=== PATIENT | female | born 1930 | race Caucasian/White ===

== ENCOUNTER 2017-07-13 23:18 | Inpatient (IN) | payer OTHER ==
[~2017-07-13] VITALS: Ht 152.4 cm; Wt 74.0 kg
[~2017-07-13 23:18] MED LIST: CALC200S; CALCIUM PO; CYAN10005 PO; FLV1 PO; GLPSR/5 PO; LIDO5DIS10 TD; LISI-725 PO; LRT5 PO; METO50TA16 PO; NMN10 PO; SERT-234 PO; SIMV20TA2 PO; VITAMIN D PO; [UNRECOGNIZED DRUG - OTHER] PO
--- NOTE | 2017-07-13 23:55 | EMERGENCY ROOM VISIT NOTE ---
History Report prepared by Nica: Topher Kendrick Under the Supervision of: Dr. Kathleen Dickens D.O. First contact with patient: 23:21 Chief Complaint: FALL Stated Complaint: FALL/HIP PAIN History of Present Illness The patient is an 87 year old female who presents to the Emergency Room after a fall that occurred prior to arrival. The nursing staff states the patient came from [facility] and rolled out of bed. They report the patient rolled out of bed onto her right side and complained of head and neck pain. Nursing staff notes the patient has a history of dementia, and it is hard for her to stay in bed. The patient states she is having discomfort in her right hip and denies a headache and neck pain. 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 It also shows the patient has a history of hyperlipidemia, a-fib, aortic stenosis, hypertension, and on PE her left eye looks laterally. HPI limited secondary to the patient's dementia. Source of History: patient Onset: [employer]IDENT[employer] Position: other (right side) Quality: other (fall) Timing: resolved Associated Symptoms: No headache, No neck pain Note: Associated symptoms: hip discomfort Review of Systems ROS is limited secondary to the patient's dementia. Past Medical & Surgical Medical Problems: (1) A-fib (2) Aortic stenosis (3) CVA (cerebral vascular accident) (4) Dementia (5) HLD (hyperlipidemia) Family History Unobtainable secondary to the patient's dementia. Social History Marital Status: Housing Status: other ([facility]) Occupation Status: retired Current/Historical Medications Scheduled Amlodipine (Norvasc), 2.5 MG PO DAILY Aspirin (Aspirin Ec), 81 MG PO QAM Atorvastatin (Lipitor), 80 MG PO DAILY Citalopram Hydrobromide (Citalopram Hydrobromide), 20 MG PO DAILY Clopidogrel (Plavix), 75 MG PO DAILY Enoxaparin (Lovenox), 40 MG SQ DAILY Memantine (Namenda), 10 MG PO Q12 Oxybutynin Chloride (Oxybutynin Chloride ER), 5 MG PO DAILY Potassium Chloride Microencaps (Potassium Chloride Er), 20 MEQ PO QAM Senna/Docusate Sod (Senokot S), 1 TAB PO DAILY AT LUNCH Allergies Coded Allergies: No Known Allergies (Unverified , 07/14/17) Physical Exam Vital Signs Date Time Temp Pulse Resp B/P (MAP) Pulse Ox O2 Delivery O2 Flow Rate FiO2 07/14/17 01:17 84 20 150/96 94 Room Air 07/14/17 00:18 88 18 151/73 97 Room Air 07/13/17 23:41 82 07/13/17 23:21 36.7 91 18 165/106 94 Room Air Physical Exam HEENT: Head - normocephalic and atraumatic Pupils are equal, round, and reactive to light. Extraocular eye muscles are intact, and sclera are anicteric. Nose - moist nasal mucosa without discharge. Mouth - moist buccal mucosa. Oropharynx is nonerythematous and there is no tonsillar exudate or edema noted. Neck: Supple; no JVD, nuchal rigidity, cervical lymphadenopathy. Heart: Irregularly irregular with a 4/6 systolic injection murmur. Lungs: Clear to auscultation bilaterally with no wheezes, rales, or rhonchi. Abdomen: Soft, completely nontender, nondistended, with good bowel sounds. There are no palpable pulsatile masses or hepatosplenomegaly. There is no guarding, rigidity, or rebound noted. Extremities: No evidence of cyanosis, clubbing, or edema. There are easily palpable peripheral pulses. Contusion to right shoulder. Complains of pain in right hip. Right lower extremity is shortened and externally rotated. Skin: warm and dry with good turgor and no rashes. Medical Decision & Procedures ER Provider Diagnostic Interpretation: Radiology results as stated below per my review and the radiologist's interpretation: X-ray of right femur: hardware in place. New hip fracture. CT HEAD: No intracranial hemorrhage, mass effect, or calvarial fracture Right frontotemporal scalp soft tissue swelling Ventricles are within limits and midline Chronic and involutional changes. Visualized paranasal sinuses, mastoid, and orbits are within limits. Radiologist: Joseph Glaser MD Study ready at 0023 and initial results transmitted at 0052. CT C SPINE: No fracture or malalignment. Multilevel spondylosis/discogenic change with bilateral foraminal and central stenosis. Radiologist: Joseph Glaser MD Study ready at 0030 and initial results transmitted at 0057. Laboratory Results 07/14/17 00:00 07/14/17 00:00 Test 07/14/17 00:00 Red Blood Count 4.57 M/uL (4.2-5.4) Mean Corpuscular Volume 92.3 fL (80-100) Mean Corpuscular Hemoglobin 31.3 pg (25-34) Mean Corpuscular Hemoglobin Concent 33.9 g/dl (32-36) RDW Standard Deviation 47.5 fL (36.4-46.3) RDW Coefficient of Variation 14.1 % (11.5-14.5) Mean Platelet Volume 10.4 fL (7.4-10.4) Anion Gap 3.0 mmol/L (3-11) Est Creatinine Clear Calc Drug Dose 63.6 ml/min Estimated GFR () 92.9 Estimated GFR (Non- 80.2 BUN/Creatinine Ratio 20.5 (10-20) Calcium Level 9.8 mg/dl (8.5-10.1) Troponin I 0.017 ng/ml (0-0.045) Laboratory results per my review. Medications Administered Medications (Trade) Dose Ordered Sig/Lucinda Route Start Time Stop Time Status Last Admin Dose Admin Morphine Sulfate (MoRPHine SULFATE INJ) 2 mg NOW STAT IV 07/14/17 01:05 07/14/17 01:06 DC 07/14/17 01:05 2 MG Ondansetron HCl (Zofran Inj) 4 mg NOW STAT IV 07/14/17 01:05 07/14/17 01:06 DC 07/14/17 01:10 4 MG Hydromorphone HCl (Dilaudid Inj) 0.5 mg NOW STAT IV 07/14/17 01:41 07/14/17 01:42 DC 07/14/17 01:46 0.5 MG Procedure 0105: Ordered Ondansetron HCl 4mg IV, Morphine Sulfate 2mg IV 0141: Ordered Hydromorphone HCl 0.5mg IV ECG Indication: weakness Rate (beats per minute): 90 Rhythm: atrial fibrillation Findings: PVC, no acute ischemic change Comparison ECG Date: no prior available ED Course 2323: The patient was evaluated in room B03B. A complete history and physical examination were performed. Nursing notes and previous electronic medical records were reviewed. IV lock was established and labs were drawn as above. 0105: Ordered Ondansetron HCl 4mg IV, Morphine Sulfate 2mg IV 0141: Ordered Hydromorphone HCl 0.5mg IV 0110: I discussed the patient's case with Pablo Sanchez. The patient will be evaluated for further management and need. 0112: Upon reevaluation, I discussed findings and results with the patient's daughter. She verbalized agreement of the treatment plan. Medical Decision The patient is an 87 year old female who presents to the ED after a fall. Differential diagnosis includes hip fracture, head injury, c-spine injury, right shoulder injury. Lab results show: no leukocytosis, stable H&H, normal renal function, glucose of 129, normal troponin. The patient was rehabbing at [facility] from a brain stem stroke. Unfortunately, tonight, she fell from bed landing on her right side. It seems that she has a right hip fracture on x-ray. The patient has hardware within the right femur from an injury from 2 years ago. The patient did not lose consciousness. CT scan of the brain and cervical spine were unremarkable. I discussed the results with the patient's granddaughter who is a nurse. I discussed the case with the Pablo [place] [facility] and they will evaluate for further management. Head Trauma GCS Score: 15 Medication Reconcilliation Current Medication List: was personally reviewed by me Blood Pressure Screening Patient's blood pressure: Elevated blood pressure Monitored by hospitalist. Consults Time Called: 108 Consulting Physician: Pablo Sanchez Returned Call: 109 I discussed the patient's case with Pablo Sanchez. The patient will be evaluated for further management and need. Impression Primary Impression: Hip fracture, right Additional Impression: Fall from bed Scribe Attestation The scribe's documentation has been prepared under my direction and personally reviewed by me in its entirety. I confirm that the note above accurately reflects all work, treatment, procedures, and medical decision making performed by me. Departure Information Dispostion Being Evaluated By Hospitalist Referrals [facility] (PCP) Patient Instructions My [facility] Problem Qualifiers Primary Impression: Hip fracture, right Encounter type: initial encounter Fracture type: closed Qualified Codes: S72.001A - Fracture of unspecified part of neck of right femur, initial encounter for closed fracture Additional Impression: Fall from bed Encounter type: initial encounter Qualified Codes: W06.XXXA - Fall from bed , initial encounter
[2017-07-14 00:11] LABS: HEMATOCRIT 42.2 % (37-47); HEMOGLOBIN 14.3 g/dL (12.0-16.0); MEAN CELL VOLUME 92.3 fL (80-100); MEAN CORPUSCULAR HEMOGLOBIN 31.3 pg (25-34); MEAN CORPUSCULAR HGB CONC 33.9 g/dl (32-36); MEAN PLATELET VOLUME 10.4 fL (7.4-10.4); PLATELET COUNT 138 K/uL (130-400); RED CELL DISTRIBUTION WIDTH CV 14.1 % (11.5-14.5); RED CELL DISTRIBUTION WIDTH SD 47.5 fL (36.4-46.3); WHITE BLOOD COUNT 6.44 K/uL (4.8-10.8)
[2017-07-14] MEDS ORDERED: SENN-65 PO (00:35)
[2017-07-14] MEDS ORDERED: CLOP1TAB15 PO (00:35)
[2017-07-14] MEDS ORDERED: CITA20TA4 PO (00:36)
[2017-07-14] MEDS ORDERED: ASPI81TA28 PO (00:36)
[2017-07-14] MEDS ORDERED: ATOR-26 PO (00:36)
[2017-07-14 00:38] LABS: CALCIUM 9.8 mg/dl (8.5-10.1); CREATININE 0.67 mg/dl (0.60-1.20); POTASSIUM 3.9 mmol/L (3.5-5.1)
[2017-07-14] MEDS ORDERED: OXYB1TAB31 PO (00:38)
[2017-07-14] MEDS ORDERED: ENOX40IN SQ (00:38)
[2017-07-14] MEDS ORDERED: AMLO2.5T PO (00:38)
[2017-07-14] MEDS ORDERED: POTA20TA13 PO (00:39)
[2017-07-14] MEDS ORDERED: ONDANSETRON INJ 2 MG/ML 2 ML VIAL IV STA (01:05)
[2017-07-14] MEDS ORDERED: MoRPHine SULFATE 4 MG/ML 1 ML CARP\\VIAL IV STA (01:05)
[2017-07-14] MEDS ORDERED: MoRPHine SULFATE 2 MG/ML CARP ONE (01:08)
[2017-07-14] MEDS ORDERED: HYDROmorphone INJ 0.5 MG/0.5 ML SYR IV STA (01:41)
[2017-07-14] MEDS ORDERED: ONDANSETRON INJ 2 MG/ML 2 ML VIAL IV PRN (02:15)
[2017-07-14] MEDS ORDERED: POLYETHYLENE (MIRALAX) 17 GM PACK PO PRN (02:15)
[2017-07-14] MEDS ORDERED: NALOXONE HCL 0.4 MG/1 ML VIAL/CARP IV PRN (02:15)
[2017-07-14] MEDS ORDERED: HYDROmorphone INJ 0.5 MG/0.5 ML SYR IV PRN (02:15)
[2017-07-14] MEDS ORDERED: MAGNESIUM HYDROXIDE SUSP 30 ML UDC PO PRN (02:15)
[2017-07-14] MEDS ORDERED: BISACODYL 10 MG SUPP PR PRN (02:15)
[2017-07-14] MEDS ORDERED: ACETAMINOPHEN 325 MG TAB PO PRN (02:15)
[2017-07-14] MEDS ORDERED: OXYCODONE HCL IR 5 MG TAB (IMMEDIATE RELEASE) PO PRN (02:15)
[2017-07-14] MEDS ORDERED: SOD PHOSPHATE/SOD BIPHOSPHATE ENEMA 132 ML BTL PR PRN (02:15)
--- NOTE | 2017-07-14 02:29 | History and Physical ---
History & Physical Date & Time of Service: Jul 14, 2017 at 02:29 . Chief Complaint: hip pain . Primary Care Physician: Eve Rodriguez . History of Present Illness Source: patient, family, clinic records, hospital records 87 YO female followed by Dr. Lorenzo for Family Medicine. History of paroxysmal atrial fibrillation, DM type 2, dementia, and other problems noted below. Suffered recent stroke and was cared for at [facility]. 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 Main deficit from stroke was ongoing diplopia. Transferred to [facility] 07/11 for inpatient rehab. Fell out of bed tonight and experienced right hip pain. Patient does not recall the circumstances of the fall. She received IV hydromorphone in the ED with some relief. . 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 Family History FATHER Coronary artery disease MOTHER Colon cancer BROTHER Hodgkin's disease SISTER Heart disease Diabetes mellitus SON Hypertension Social History Smoking Status: Never Smoker Alcohol Use: none Marital Status: Housing status: lives with family Occupational Status: retired Immunizations History of Influenza Vaccine: Yes History of Tetanus Vaccine?: No History of Pneumococcal: No History of Hepatitis B Vaccine: No Allergies Coded Allergies: No Known Allergies (Unverified , 07/14/17) Home Medications Scheduled Amlodipine (Norvasc), 2.5 MG PO DAILY Aspirin (Aspirin Ec), 81 MG PO QAM Atorvastatin (Lipitor), 80 MG PO DAILY Citalopram Hydrobromide (Citalopram Hydrobromide), 20 MG PO DAILY Clopidogrel (Plavix), 75 MG PO DAILY Enoxaparin (Lovenox), 40 MG SQ DAILY Memantine (Namenda), 10 MG PO Q12 Oxybutynin Chloride (Oxybutynin Chloride ER), 5 MG PO DAILY Potassium Chloride Microencaps (Potassium Chloride Er), 20 MEQ PO QAM Senna/Docusate Sod (Senokot S), 1 TAB PO DAILY AT LUNCH Review of Systems Unable to obtain due to confusion. . Physical Exam Vital Signs Date Time Temp Pulse Resp B/P (MAP) Pulse Ox O2 Delivery O2 Flow Rate FiO2 07/14/17 01:17 84 20 150/96 94 Room Air 07/14/17 00:18 88 18 151/73 97 Room Air 07/13/17 23:41 82 07/13/17 23:21 36.7 91 18 165/106 94 Room Air General Appearance: + moderate distress Head: + pertinent finding (contusion right temporal parietal scalp) Eyes: PERRL, sclerae normal, + pertinent finding (conjunctivae cledar) ENT: hearing grossly normal, + pertinent finding (edentulous; oral mucosa dry) Neck: supple, no adenopathy, thyroid normal, trachea midline Respiratory/Chest: lungs clear, no respiratory distress, no accessory muscle use Cardiovascular: no JVD, + abnormal peripheral pulses (diminished pedal pulses) , + pertinent finding (irregular, IV/ systolic murmur heard thoughout precordium, no gallop appreciated) Abdomen/GI: normal bowel sounds, non tender, soft, no organomegaly Extremities/Musculoskelatal: no calf tenderness, normal capillary refill, + pertinent finding (right leg shortened and externally rotated) Neurologic/Psych: alert, + disoriented, + pertinent finding (pupils reactive, right exotropia, motor strength upper extremities 4.5/5; assessment of lower extremity strength limited; plantar reflexes downgoing) Skin: normal color, warm/dry, no rash Lymphatic: no adenopathy (cervical) Diagnostics Laboratory Results Results Past 24 Hours Test 07/14/17 00:00 Range/Units White Blood Count 6.44 4.8-10.8 K/uL Red Blood Count 4.57 4.2-5.4 M/uL Hemoglobin 14.3 12.0-16.0 g/dL Hematocrit 42.2 37-47 % Mean Corpuscular Volume 92.3 80-100 fL Mean Corpuscular Hemoglobin 31.3 25-34 pg Mean Corpuscular Hemoglobin Concent 33.9 32-36 g/dl RDW Standard Deviation 47.5 36.4-46.3 fL RDW Coefficient of Variation 14.1 11.5-14.5 % Platelet Count 138 130-400 K/uL Mean Platelet Volume 10.4 7.4-10.4 fL Sodium Level 134 136-145 mmol/L Potassium Level 3.9 3.5-5.1 mmol/L Chloride Level 103 98-107 mmol/L Carbon Dioxide Level 28 21-32 mmol/L Anion Gap 3.0 3-11 mmol/L Blood Urea Nitrogen 14 7-18 mg/dl Creatinine 0.67 0.60-1.20 mg/dl Est Creatinine Clear Calc Drug Dose 63.6 ml/min Estimated GFR () 92.9 Estimated GFR (Non- 80.2 BUN/Creatinine Ratio 20.5 10-20 Random Glucose 129 70-99 mg/dl Calcium Level 9.8 8.5-10.1 mg/dl Troponin I 0.017 0-0.045 ng/ml Diagnostic Radiology CT head- no acute abnormalities. (preliminary report per [facility]). CT cervical spine- degenerative changes, no fracture or dislocation. (preliminary report per [facility]). X-ray right hip demonstrated displaced intertrochanteric fracture. . EKG EKG performed at 23:23 reviewed and demonstrated baseline artifact, AF vs WAP at 90 / minute, PVC's, poor R-wave progression. . Impression Assessment and Plan RIGHT HIP FRACTURE High risk for surgical intervention due to recent stroke and cardiac issues. Will need to consider benefits and potential risks of surgical repair. Initial management per Geriatric Hip Fracture protocol. Consult Ortho, Cardiology, Anesthesiology. RECENT BRAINSTEM STROKE Head CT negative for apparent new event. Records from [facility] requested. Hold aspirin and clopidogrel pending surgical disposition. Resume PT / OT when able. CARDIAC ARRHYTHMIAS History of paroxysmal atrial fibrillation. Not anticoagulated. EKG in ED showed AF vs WAP with PVC's. Monitor on telemetry unit. AORTIC STENOSIS Had recent echo done at [facility] Records requested. DEMENTIA Continue memantine. Monitor for delirium. 1:1 staffing for safety. DM TYPE 2 Recently diet-controlled. Random blood sugar 129. Follow BSG's. Insulin coverage as needed with modest blood sugar goals. VTE PROPHYLAXIS Hold enoxaparin pending surgical disposition. SCD's. RESUSCITATION STATUS Discussed with family. Patient has a living will. She indicated in the past before the onset of her dementia that she would not want any extraordinary measures in the event of a cardiopulmonary arrest. Code status is "level 5" (DNR). DISPOSITION To be determined. Family Medicine follow-up with Dr. Lorenzo. . VTE Prophylaxis VTE Risk Assessment Done? Y/N: Yes Risk Level: High Given or contraindicated: SCD's
[2017-07-14 03:55] VITALS: BP 112/67; PULSE 98; TEMP 37.5; O2SAT 97; Ht 152.4 cm; Wt 74.0 kg
--- NOTE | 2017-07-14 03:55 | NUR ---
Patient arrived to unit via litter around this time. Placed in bed. rat exterminator applied, afib. VS obtained. Patient is confused. MD ordered 1:1. Admission packet completed by family. Code word and fall form left at bedside. May inserted per order. Allevyn dsg applied to sacrum. RLE externally rotated and shortened. Pillow kept between legs to prevent leg crossing. O2 at 2lpm, lungs diminished. Admission assessment completed. Bed alarm on. 1:1 maintained. Will continue to monitor patient.
[2017-07-14] MEDS: HYDROmorphone INJ 0.5 MG/0.5 ML SYR IV PRN ×2 (05:51→18:53)
[2017-07-14] MEDS: D5NSS + 20MEQ KCL 1,000 ML IV SCH ×2 (05:55→15:28)
[2017-07-14] MEDS ORDERED: CEFAZOLIN 2000MG IV PUSH 10 ML IV SCH (06:00)
--- NOTE | 2017-07-14 06:57 | DIAGNOSTIC IMAGING REPORT ---
R HIP UNILATERAL 2 VIEWS CLINICAL HISTORY: Fall from bed. COMPARISON: CT of the abdomen and pelvis November 30, 2009. FINDINGS: Note is made of a moderately displaced intertrochanteric fracture of the right femur with significant associated angulation. A previous plate and screw fixation within visualized portions of the right femoral shaft is noted. IMPRESSION: Acute moderately displaced intertrochanteric fracture of the right femur with significant angulation. Electronically signed by: Jermaine Connors M.D. 07/14/2017 6:56 AM Dictated Date/Time: 07/14/2017 6:54 AM
--- NOTE | 2017-07-14 07:07 | DIAGNOSTIC IMAGING REPORT ---
CT OF THE CERVICAL SPINE WITHOUT CONTRAST CLINICAL HISTORY: Fall. COMPARISON STUDY: No previous studies for comparison. TECHNIQUE: Helical axial images of the cervical spine were obtained without IV contrast. Sagittal and coronal reconstructions were viewed. A dose lowering technique was utilized adhering to the principles of ALARA. FINDINGS: There is straightening of the normal cervical lordosis. Craniocervical junction is intact. There is no acute cervical spine fracture. Moderate multilevel degenerative disc disease and facet arthrosis present. There is no prevertebral edema. Linear left apical opacity suggests scarring or atelectasis. IMPRESSION: No acute cervical spine fracture or subluxation. Electronically signed by: Jermaine Connors M.D. 07/14/2017 7:06 AM Dictated Date/Time: 07/14/2017 7:00 AM
--- NOTE | 2017-07-14 07:09 | DIAGNOSTIC IMAGING REPORT ---
HEAD CT NONCONTRAST CT DOSE: HISTORY: fall; h/o recent brainstem stroke TECHNIQUE: Multiaxial CT images of the head were performed without the use of intravenous contrast. Automated exposure control was utilized for this study. A dose lowering technique was utilized adhering to the principles of ALARA. Comparison: None. Findings: The paranasal sinuses and mastoid air cells are clear. The calvarium and skull base are intact. There is no mass, hematoma, midline shift, acute infarct. White matter hypodensity is nonspecific but suggestive of microvascular ischemic change. The ventricles and sulci demonstrate mild age-related involutional changes. Mild right lateral scalp swelling. Impression: No acute intracranial abnormality. Atrophy and microvascular ischemic changes. Right lateral scalp swelling. Electronically signed by: Felice Mullins M.D. 07/14/2017 7:07 AM Dictated Date/Time: 07/14/2017 7:05 AM
[2017-07-14 07:32] VITALS: BP 111/67; PULSE 89; TEMP 37.1; O2SAT 96
[2017-07-14 07:33] LABS: HEMATOCRIT 40.7 % (37-47); HEMOGLOBIN 13.6 g/dL (12.0-16.0); MEAN CELL VOLUME 93.6 fL (80-100); MEAN CORPUSCULAR HEMOGLOBIN 31.3 pg (25-34); MEAN CORPUSCULAR HGB CONC 33.4 g/dl (32-36); MEAN PLATELET VOLUME 10.2 fL (7.4-10.4); PLATELET COUNT 124 K/uL (130-400); RED CELL DISTRIBUTION WIDTH CV 14.2 % (11.5-14.5); RED CELL DISTRIBUTION WIDTH SD 48.5 fL (36.4-46.3); WHITE BLOOD COUNT 9.79 K/uL (4.8-10.8)
[2017-07-14 07:44] LABS: INR 1.1 (0.9-1.1); PTT PATIENT 25.9 SECONDS (21.0-31.0)
[2017-07-14 07:56] LABS: ALBUMIN 3.1 gm/dl (3.4-5.0); CALCIUM 9.1 mg/dl (8.5-10.1); CREATININE 0.66 mg/dl (0.60-1.20); POTASSIUM 4.4 mmol/L (3.5-5.1)
[2017-07-14 07:59] LABS: TOTAL PROTEIN 6.2 gm/dl (6.4-8.2)
[2017-07-14] MEDS ORDERED: INSULIN ASPART 100 UNITS/ML 3 ML PEN SC ONE (08:13)
--- NOTE | 2017-07-14 08:22 | DIAGNOSTIC IMAGING REPORT ---
CHEST ONE VIEW PORTABLE CLINICAL HISTORY: Hip fracture. COMPARISON STUDY: No previous studies for comparison. FINDINGS: Lung volumes are normal. No consolidation is identified. Minimal bibasilar opacities suggest atelectasis. There is moderate cardiomegaly without evidence of pulmonary edema. No pneumothorax or pleural effusion is present. IMPRESSION: 1. No acute cardiopulmonary findings. 2. Moderate cardiomegaly. 3. Bibasilar opacities suggestive of atelectasis. Electronically signed by: Jermaine Connors M.D. 07/14/2017 8:21 AM Dictated Date/Time: 07/14/2017 8:19 AM
[2017-07-14] MEDS ORDERED: GLUCAGON FOR INJ 1 MG VIAL SQ PRN (08:30)
[2017-07-14] MEDS ORDERED: GLUCOSE 10 TABS/TUBE PO PRN (08:30)
[2017-07-14] MEDS ORDERED: GLUCOSE 40% GEL 15 GM TUBE PO PRN (08:30)
[2017-07-14] MEDS ORDERED: DEXTROSE 50% 50 ML SYR IV PRN (08:30)
--- NOTE | 2017-07-14 08:38 | NUR ---
Pt sleeping, NPO for possible surgery today. 1:1 for safety. May patent/draining. Wearing 2 liters. Cardiology attempting to reach , POA to discuss surgery risks. Echo done, report pending.
[2017-07-14] MEDS: DOCUSATE SODIUM/SENNA 50/8.6MG TAB PO SCH ×2 (09:00→20:53)
[2017-07-14] MEDS: INSULIN GLARGINE SOLOSTAR 100 UNITS/ML 3 ML PEN SC SCH ×2 (09:00→22:02)
[2017-07-14] MEDS: AMLODIPINE BESYLATE 5 MG TAB PO SCH (09:00)
[2017-07-14] MEDS: MEMANTINE 10 MG TAB PO SCH ×2 (09:00→20:53)
[2017-07-14] MEDS: CITALOPRAM 20 MG TAB PO SCH (09:00)
[2017-07-14] MEDS: ATORVASTATIN 40 MG TAB PO SCH (09:00)
--- NOTE | 2017-07-14 10:04 | CARDIOLOGY CONSULTATION ---
DATE OF CONSULTATION: 07/14/2017 CONSULTATION REQUESTED BY: Dr. Be. REASON FOR CONSULTATION: Preop risk assessment. HISTORY OF PRESENT ILLNESS: Mrs. Mckoy is a very pleasant yet significantly demented 87-year-old woman who was sent to [facility] from [facility] after a reported fall. The patient is very demented. No family is currently at the bedside and an attempt to contact power of environmental attorney went unanswered. History was obtained through review of medical records. Apparently, the patient was at 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 She was at [facility] for a few days when she rolled out of bed, fell on the ground and complained of right-sided pain along with head and neck pain. She was transported to [facility], where hip x-ray showed a moderately displaced right intratrochanteric fracture. She was admitted to telemetry. Currently, the patient is significantly confused. She is arousable, but not responding appropriately to questioning. I am unsure how far this is off of her baseline, but she has received pain medication. Of note, the patient has a longstanding history of aortic stenosis. An echocardiogram from [facility] in 2014 revealed severe aortic stenosis; however, an echocardiogram performed this past admission at [facility] was read as mild aortic stenosis. The patient has not been seen by cardiology on in our EPIC records. Again, I am unable to retrieve whether or not she does follow with cardiology on a regular basis. PAST SURGICAL HISTORY: 1. Breast biopsy. 2. Carpal tunnel surgery. 3. Cardiac catheterization in 1983. 4. Colonoscopy. 5. Cystoscopy. 6. Upper endoscopy. 7. Right femur fracture repair. 8. Cataract surgery. 9. Total abdominal hysterectomy. MEDICAL ILLNESSES: 1. Dementia, Alzheimer's type. 2. Recent cerebrovascular accident. 3. History of carotid occlusive disease. 4. Diastolic dysfunction with normal LV systolic function. 5. Depression. 6. Cirrhosis. 7. Adhesive capsulitis. 8. Gait abnormality. 9. Diabetes. 10. Dyslipidemia. 11. Hypertension. 12. Hyperparathyroidism. 13. Anemia. 14. Pathologic vertebral fracture. SOCIAL HISTORY: Remote tobacco use history. Denies any alcohol or recreational drug use. REVIEW OF SYSTEMS: Unobtainable given the patient's current mental state. ALLERGIES: No known drug allergies. MEDICATIONS AN OUTPATIENT: 1. Aspirin 81 mg daily. 2. Plavix 75 mg daily. 3. Lovenox 40 mg subQ daily. 4. Amlodipine 2.5 mg daily. 5. Atorvastatin 80 mg daily. 6. Citalopram daily. 7. Namenda b.i.d. 8. Oxybutynin daily. PHYSICAL EXAMINATION: VITALS: Temperature 37.1, pulse 89, respiratory rate 12, and blood pressure 111/67. GENERAL: Awake. Oriented to self only. No acute distress. Lethargic. HEENT: Normocephalic and atraumatic. Pupils equal, round, and reactive to light and accommodation. Extraocular muscles intact. Anicteric sclerae. Moist mucous membranes. NECK: No JVD. No bruit. CARDIOVASCULAR: Regular. Positive S4. Normal S1. S2 is not present. Harsh blowing, 4/6 mid to late systolic ejection murmur greatest at the right sternal border second intercostal space with radiation to bilateral carotids. No rubs. PULMONARY: Scattered rhonchi. No rales or wheezing. ABDOMEN: Bowel sounds x4. Soft. No rebound, guarding, or tenderness. No organomegaly. EXTREMITIES: +2 pedal pulses bilaterally. SKIN: Warm and dry. TEST RESULTS: A 12-lead EKG performed in the Emergency Department independently reviewed at this time shows wandering atrial pacemaker with occasional PVCs, leftward axis, poor R-wave progression across the precordium, no signs of active ischemia. A 2D Echocardiogram from 2014 was read as severe aortic stenosis. A 2D echocardiogram from [facility] performed on 07/07/2017 was read as normal LV systolic function, EF 65% with mild mitral stenosis. IMPRESSION: 1. Hip fracture, status post fall. 2. Preoperative risk assessment prior to undergoing possible ORIF. 3. Aortic stenosis, severe by examination. 4. Dementia. 5. Carotid occlusive disease. 6. Diabetes. 7. Hypertension. 8. Hyperlipidemia. RECOMMENDATIONS: It was my pleasure to see Mrs. Mckoy in consultation today. First and foremost from a cardiac standpoint, her aortic stenosis is severe by examination and I do not believe the results of this recent echocardiogram of [facility]. So, an urgent echocardiogram will be repeated at this time, but given the degree of her stenosis by examination and her significant dementia and poor baseline function, I would place the patient as a high to a very high risk for any adverse perioperative cardiovascular event. Again, I would like to discuss this risk further with the family. Message has been left for the primary from the power of environmental attorney, José Antonio. Of note, the patient's granddaughter is also a nurse here at [facility] and I will ask a permission to discuss the case with her as well. Otherwise, medically right now, she is in normal sinus rhythm with frequent ectopy and wandering atrial pacemaker baseline. Her blood pressure is controlled. So, no other medications will be started at this time. She is also recently started on aspirin and Plavix. SMILEY
[2017-07-14 10:47] VITALS: BP 123/71; PULSE 79; TEMP 37; O2SAT 97
--- NOTE | 2017-07-14 10:56 | ECHOCARDIOGRAM REPORT ---
*NOTICE TO RECEIVING DEMOCRAT AGENCY This information is strictly Confidential and protected under [place] law. [place] law prohibits you from making any further disclosure of this information unless further disclosure is expressly permitted by the written consent of the person to whom it pertains or is authorized by law. A general authorization for the release of medical or other information is not sufficient for this purpose. Hospital accepts no responsibility if the information is made available to any other person, INCLUDING THE PATIENT. Interpretation Summary * Name: MOUSTAPHA ODOM Study Date: 07/14/2017 09:08 AM BP: 111/67 mmHg * Patient Location: .2E\S\E206\S\1 HR: 89 * : 1930 (M/d/yyyy) Gender: Female Height: 60 in * Age: 87 yrs Ethnicity: [place] Weight: 168 lb * Ordering Physician: Hardeep Santana * Referring Physician: Eve Rodriguez * Performed By: Dmitry Ponce [facility] * * Reason For Study: Valvular Heart Dz, Aortic Stenosis * BSA: 1.7 m2 * -- Conclusions -- * Small, underfilled. LV chamber size with mild concentric LVH. * Hyperdynamic LV systolic function, EF >70%. * No segmental left ventricular wall motion abnormalities are noted. * Grade I diastolic dysfunction. * Trileaflet, likely rheumatic appearing, aortic valve, moderately reduced systolic excursion. Severe aortic stenosis with an HAIM by planimetry of 0.8 cm2. * Rheumatic appearing mitral valve with mild to moderate stenosis. * Moderate left atrial enlargement. Procedure Details * A complete two-dimensional transthoracic echocardiogram was performed (2D, M-mode, Doppler and color flow Doppler). * There were technical limitations due to patient's Supine positioning for imagining and inability to cooperate. Left Ventricle * The left ventricular cavity is small. * There is mild concentric left ventricular hypertrophy. * Ejection Fraction = >70 %. * The left ventricle is hyperdynamic. * No segmental left ventricular wall motion abnormalities are noted. * The left ventricular wall motion is normal. Right Ventricle * The right ventricular cavity size is normal (basal dimension <4.2 cm in right ventricular apical 4-chamber view). * The right ventricular systolic function is normal as assessed by tricuspid annular plane systolic excursion (TAPSE) (normal >1.5 cm). Atria * The left atrium is moderately dilated. * Right atrial size is normal. * No ASD detected; PFO is not assessed. Mitral Valve * Rheumatic mitral stenosis. * There is mild to moderate mitral stenosis. * There is no mitral regurgitation noted. Tricuspid Valve * The tricuspid valve is normal in structure and function. Aortic Valve * Trileaflet, likely rheumatic appearing, aortic valve, moderately reduced systolic excursion. Severe aortic stenosis with an HAIM by planimetry of 0.8 cm2. * There is no significant aortic regurgitation. Pulmonic Valve * The pulmonary valve is not well seen, but the Doppler examination is normal without significant regurgitation or stenosis. Great Vessels * The aortic root and proximal ascending aorta are normal sized. Pericardium/Pleural * There is no pericardial effusion. Left Ventricular Diastolic Function * Grade I diastolic dysfunction, (abnormal relaxation pattern). MMode 2D Measurements and Calculations IVSd 1.1 cm IVSs 1.4 cm LVIDd 2.3 cm LVIDs 1.3 cm LVPWd 1.3 cm LVPWs 1.5 cm IVS/LVPW 0.88 FS 43.5 % EDV(Teich) 18.7 ml ESV(Teich) 4.3 ml EF(Teich) 77.1 % EDV(cubed) 12.7 ml ESV(cubed) 2.3 ml EF(cubed) 82.0 % % IVS thick 23.8 % % LVPW thick 19.3 % LV mass(C)d 77.1 grams LV mass(C)dI 44.5 grams/m\S\2 LV mass(C)s 60.7 grams LV mass(C)sI 35.0 grams/m\S\2 SV(Teich) 14.4 ml SI(Teich) 8.3 ml/m\S\2 SV(cubed) 10.4 ml SI(cubed) 6.0 ml/m\S\2 Ao root diam 3.6 cm Ao root area 10.1 cm\S\2 LA dimension 4.6 cm asc Aorta Diam 3.6 cm LA/Ao 1.3 LVOT diam 2.0 cm LVOT area 3.2 cm\S\2 EDV(MOD-sp4) 66.7 ml ESV(MOD-sp4) 29.8 ml EF(MOD-sp4) 55.4 % EDV(MOD-sp2) 69.0 ml ESV(MOD-sp2) 19.1 ml EF(MOD-sp2) 72.3 % SV(MOD-sp4) 36.9 ml SI(MOD-sp4) 21.3 ml/m\S\2 SV(MOD-sp2) 49.9 ml SI(MOD-sp2) 28.8 ml/m\S\2 Doppler Measurements and Calculations MV E max mike 103.6 cm/sec MV A max mike 192.1 cm/sec MV E/A 0.54 MV V2 max 220.0 cm/sec MV max PG 19.4 mmHg MV V2 mean 122.2 cm/sec MV mean PG 6.9 mmHg MV V2 VTI 50.9 cm MVA(VTI) 2.1 cm\S\2 MV P1/2t max mike 113.9 cm/sec MV P1/2t 215.0 msec MVA(P1/2t) 1.0 cm\S\2 MV dec slope 155.1 cm/sec\S\2 MV dec time 1.0 sec Ao V2 max 361.8 cm/sec Ao max PG 52.5 mmHg Ao max PG (full) 39.8 mmHg Ao V2 mean 216.3 cm/sec Ao mean PG 23.5 mmHg Ao mean PG (full) 17.7 mmHg Ao V2 VTI 73.5 cm HAIM(I,A) 1.5 cm\S\2 HAIM(I,D) 1.5 cm\S\2 HAIM(V,A) 1.6 cm\S\2 HAIM(V,D) 1.6 cm\S\2 LV V1 max PG 12.7 mmHg LV V1 mean PG 5.7 mmHg LV V1 max 178.1 cm/sec LV V1 mean 110.7 cm/sec LV V1 VTI 33.8 cm SV(Ao) 740.6 ml SI(Ao) 427.3 ml/m\S\2 SV(LVOT) 108.6 ml SI(LVOT) 62.6 ml/m\S\2 PA V2 max 120.3 cm/sec PA max PG 5.8 mmHg TR max mike 215.2 cm/sec
[2017-07-14] MEDS: INSULIN ASPART 100 UNITS/ML 3 ML PEN SC SCH ×3 (11:00→21:00)
[2017-07-14] MEDS ORDERED: NURSING VERBAL MED ORDER ONE (11:15)
--- NOTE | 2017-07-14 12:40 | NUR ---
, Eliel, is POA, living will in chart. [phone]. Addendum: 07/14/17 at 1241 by Ambreen Shelley RN Daughter in laws updated, pt is high risk for surgery per cardiology but still waiting for Anesthesia and surgeon to see pt. NPO. IVF infusing. explosive ordnance disposal specialist in room. Pt denies pain.
--- NOTE | 2017-07-14 14:26 | Orthopedic Consultation ---
Orthopedic Consultation Date of Consultation: Jul 14, 2017. Attending Physician: Antoni García DO Reason for Consultation: Right hip fx History of Present Illness Kerline is a 87 y/o female admitted last night with a displaced intertroch hip fx. She has a h/o diabetes, atrial fibrillation, aortic stenosis, recent stroke. She was at [facility] due to her recent stroke and fell out of bed. She has dementia and her hx was obtained from the chart/ [facility]. Presently, she complains of right hip pain and some back pain. She has had a prior ORIF of the right femur but we are unsure of when at this time. Admission [facility] was reviewed. Past Medical/Surgical History Medical Problems: (1) Fall from bed Status: Acute (2) Hip fracture, right Status: Acute Family History Colon cancer MOTHER Coronary artery disease FATHER Diabetes mellitus SISTER Heart disease SISTER Hodgkin's disease BROTHER Hypertension SON Social History Smoking Status: Never Smoker Alcohol Use: none Marital Status: Housing Status: other ([facility]) Occupation Status: retired Allergies Coded Allergies: No Known Allergies (Unverified , 07/14/17) Home Medications Scheduled Amlodipine (Norvasc), 2.5 MG PO DAILY Aspirin (Aspirin Ec), 81 MG PO QAM Atorvastatin (Lipitor), 80 MG PO DAILY Citalopram Hydrobromide (Citalopram Hydrobromide), 20 MG PO DAILY Clopidogrel (Plavix), 75 MG PO DAILY Enoxaparin (Lovenox), 40 MG SQ DAILY Memantine (Namenda), 10 MG PO Q12 Oxybutynin Chloride (Oxybutynin Chloride ER), 5 MG PO DAILY Potassium Chloride Microencaps (Potassium Chloride Er), 20 MEQ PO QAM Senna/Docusate Sod (Senokot S), 1 TAB PO DAILY AT LUNCH Current Inpatient Medications Current Inpatient Medications Medications (Trade) Dose Ordered Sig/Lucinda Route Start Time Stop Time Status Last Admin Dose Admin Potassium Chloride/Dextrose/ Sod Cl 1,000 ml @ 100 mls/hr Q10H IV 07/14/17 05:45 08/13/17 05:44 07/14/17 05:55 100 MLS/HR Cefazolin Sodium 10 ml @ 2.5 mls/min PREOP IV 07/14/17 06:00 07/14/17 18:00 Ondansetron HCl (Zofran Inj) 4 mg Q6H PRN IV 07/14/17 02:15 08/13/17 02:14 Acetaminophen (Tylenol Tab) 650 mg Q6H PRN PO 07/14/17 02:15 08/13/17 02:14 Oxycodone HCl (Roxicodone Immediate Rel Tab) 5 mg Q4H PRN PO 07/14/17 02:15 07/28/17 02:14 Hydromorphone HCl (Dilaudid Inj) 0.25 mg Q1H PRN IV 07/14/17 02:15 07/28/17 02:14 Hydromorphone HCl (Dilaudid Inj) 0.5 mg Q1H PRN IV 07/14/17 02:15 07/28/17 02:14 07/14/17 05:51 0.5 MG Naloxone HCl (Narcan Inj) 0.1 mg PRN PRN IV 07/14/17 02:15 08/13/17 02:14 Polyethylene (Miralax Powder Packet) 17 gm DAILY PRN PO 07/14/17 02:15 08/13/17 02:14 Magnesium Hydroxide (Milk Of Magnesia Susp) 30 ml DAILY PRN PO 07/14/17 02:15 08/13/17 02:14 Bisacodyl (Dulcolax Supp) 10 mg DAILY PRN UT 07/14/17 02:15 08/13/17 02:14 Sodium Biphosphate/ Sodium Phosphate (Fleet Enema) 132 ml PRN PRN UT 07/14/17 02:15 Amlodipine Besylate (Norvasc Tab) 2.5 mg DAILY PO 07/14/17 09:00 08/13/17 08:59 Atorvastatin Calcium (Lipitor Tab) 80 mg DAILY PO 07/14/17 09:00 08/13/17 08:59 Citalopram Hydrobromide (celeXA TAB) 20 mg DAILY PO 07/14/17 09:00 08/13/17 08:59 Memantine (Namenda Tab) 10 mg Q12 PO 07/14/17 09:00 08/13/17 08:59 Senna/Docusate Sodium (Senokot S Tab) 1 tab BID PO 07/14/17 09:00 08/13/17 08:59 Insulin Aspart (novoLOG ASPART) SLIDING SCALE G... ACHS SC 07/14/17 11:00 08/13/17 10:59 Insulin Glargine (Lantus Solostar Pen) 4 units BID SC 07/14/17 09:00 08/13/17 08:59 Glucose (Glucose 40% Gel) 15-30 GRAMS 15 GRAMS... UD PRN PO 07/14/17 08:30 08/13/17 08:29 Glucose (Glucose Chew Tab) 4-8 Tablets 4 Tabl... UD PRN PO 07/14/17 08:30 08/13/17 08:29 Dextrose (Dextrose 50% 50ML Syringe) 25-50ML OF 50% DW IV FOR... UD PRN IV 07/14/17 08:30 08/13/17 08:29 Glucagon (Glucagon Inj) 1 mg UD PRN SQ 07/14/17 08:30 08/13/17 08:29 Physical Exam Date Time Temp Pulse Resp B/P (MAP) Pulse Ox O2 Delivery O2 Flow Rate FiO2 07/14/17 12:59 Nasal Cannula 2.0 07/14/17 10:47 37.0 79 16 123/71 (88) 97 Nasal Cannula 2.0 07/14/17 08:00 Nasal Cannula 2.0 07/14/17 07:32 37.1 89 16 111/67 (82) 96 Nasal Cannula 2.0 07/14/17 03:55 37.5 98 18 112/67 97 Nasal Cannula 2.0 07/14/17 02:44 100 20 158/79 95 Room Air 07/14/17 01:17 84 20 150/96 94 Room Air 07/14/17 00:18 88 18 151/73 97 Room Air 07/13/17 23:41 82 07/13/17 23:21 36.7 91 18 165/106 94 Room Air She was awake on exam today. Confused. NAD. She does not seem to have pain with ROM of her upper extremities or left leg. Her right leg is shortened and externally rotated. She has a scar on the lateral thigh. Right hip pain with very minimal motion of the leg. She does have edema of the right leg. She is able to DF/PF appropriately. Sensation intact to touch. Brisk refill. xrays were reviewed and show a displaced intertroch fx of the right femur. There is a plate and screws on the femur from previous ORIF. Laboratory Results Last 24 Hours Test 07/14/17 00:00 07/14/17 04:50 07/14/17 07:17 07/14/17 08:44 White Blood Count 6.44 K/uL 9.79 K/uL Red Blood Count 4.57 M/uL 4.35 M/uL Hemoglobin 14.3 g/dL 13.6 g/dL Hematocrit 42.2 % 40.7 % Mean Corpuscular Volume 92.3 fL 93.6 fL Mean Corpuscular Hemoglobin 31.3 pg 31.3 pg Mean Corpuscular Hemoglobin Concent 33.9 g/dl 33.4 g/dl RDW Standard Deviation 47.5 fL 48.5 fL RDW Coefficient of Variation 14.1 % 14.2 % Platelet Count 138 K/uL 124 K/uL Mean Platelet Volume 10.4 fL 10.2 fL Sodium Level 134 mmol/L 135 mmol/L Potassium Level 3.9 mmol/L 4.4 mmol/L Chloride Level 103 mmol/L 103 mmol/L Carbon Dioxide Level 28 mmol/L 27 mmol/L Anion Gap 3.0 mmol/L 5.0 mmol/L Blood Urea Nitrogen 14 mg/dl 14 mg/dl Creatinine 0.67 mg/dl 0.66 mg/dl Est Creatinine Clear Calc Drug Dose 63.6 ml/min 57.0 ml/min Estimated GFR () 92.9 93.4 Estimated GFR (Non- 80.2 80.6 BUN/Creatinine Ratio 20.5 20.6 Random Glucose 129 mg/dl 187 mg/dl Calcium Level 9.8 mg/dl 9.1 mg/dl Troponin I 0.017 ng/ml 0.019 ng/ml Urine Color YELLOW Urine Appearance CLEAR Urine pH 6.5 Urine Specific [employer] [place] 1.011 Urine Protein NEG Urine Glucose (UA) NEG Urine Ketones NEG Urine Occult Blood NEG Urine Nitrite NEG Urine Bilirubin NEG Urine Urobilinogen NEG Urine Leukocyte Esterase SMALL Urine WBC (Auto) 5-10 /hpf Urine RBC (Auto) 0-4 /hpf Urine Hyaline Casts (Auto) 0 /lpf Urine Epithelial Cells (Auto) 10-20 /lpf Urine Bacteria (Auto) 1+ Prothrombin Time 11.4 SECONDS Prothromb Time International Ratio 1.1 Activated Partial Thromboplast Time 25.9 SECONDS Partial Thromboplastin Ratio 1.0 Total Bilirubin 0.8 mg/dl Aspartate Amino Transf (AST/SGOT) 61 U/L Alanine Aminotransferase (ALT/SGPT) 70 U/L Alkaline Phosphatase 116 U/L Total Protein 6.2 gm/dl Albumin 3.1 gm/dl Globulin 3.1 gm/dl Albumin/Globulin Ratio 1.0 25-Hydroxy Vitamin D Total 28.3 ng/ml Bedside Glucose 186 mg/dl Test 07/14/17 13:10 Bedside Glucose 164 mg/dl Assessment & Plan Assessment: Displaced right intertroch fx Plan: She was seen and examined by Dr. Adler today as well. We cancelled the npo order and ordered a diet for her this afternoon. We will put surgery on hold for now until further discussion with her family and providers. She has been seen by the cardiology service as well and is felt to be very high risk for surgery. Apparently her preferred her son to help make this decision and he was called a couple of times. Surgery for this would consist of either removing all the implants and placing an IM nail in the femur, or removing some screws, cutting the plate and placing a shorter nail. But again, surgery has been cancelled at this time. Continue management per hospitalist service and cardiology. From an orthopedic standpoint she can resume lovenox. Continue bedrest, NWB RLE, and pain control.
--- NOTE | 2017-07-14 14:41 | NUR ---
Eliel [phone]; Son Carlos Manuel [phone], cell [phone]; grand daughter Elva [phone]; Other son, José Antonio [phone]
--- NOTE | 2017-07-14 14:47 | Progress Note ---
Progress Note Date of Service Jul 14, 2017. Progress Note Multiple attempts made to contact multiple family members. Ultimately spoke with son, Carlos Manuel, who is the designated decision maker per the patient's , Eliel Explained very high perioperative mortality risk given valvular disease also, pt is not ambulatory at baseline and is confined to a wheelchair due to chronic knee pain Explained to son that risks of surgery would likely outweigh benefit at this time, he agrees Family does not want surgery performed.
[2017-07-14 15:50] VITALS: BP 129/78; PULSE 77; TEMP 37; O2SAT 98
--- NOTE | 2017-07-14 15:52 | NUR ---
Pt is not to have surgery. Ancmi DC'd, was ordered for OR.
--- NOTE | 2017-07-14 15:53 | NUR ---
case management note. social service for D/C needs. attempted to meet with pt at bedside but pt is confused has a sitter at bedside and is unable to answer questions. call placed to communications department chairperson on face sheet and spoke with pts son, Chance, and daughter in law, Moni. pt is and was living with her in a 2 story house but was only using the main level. pt was wheelchair bound and was only able to stand to get into the wheelchair and on to the commode. pt was dependent with bathing. family was providing 24 hour care and pt had a caregiver for bathing 3 days/week provided through [facility]. pt had been hospitalized at [facility] in [place] recently with a CVA and was transferred to [facility] at D/C for rehab to attempt to get pt back to baseline. Moni states they spoke with the gusset edger who stated pt is high risk for surgery. at this time surgery has been cancelled and pt is non weight bearing. Moni states the family has discussed plans and are looking at possible SNF placement for pt and would like a referral to [facility]. with permission referral completed. Per Moni, Hubert is pts and is primary decision maker. Carlos Manuel is pts oldest son and his is Christine. Their contact number is [phone]. José Antonio is pts POA and his is Katharina. Their contact number is [phone]. Chance is also pts son and his is Moni. Their contact number is [phone](H) and [phone](C). Moni and Christine were pts primary caregivers prior to CVA and hospitalization. case management to follow.
[2017-07-14 20:01] VITALS: BP 129/62; PULSE 85; TEMP 37.3; O2SAT 96
--- NOTE | 2017-07-14 20:53 | NUR ---
Pt was medicated with dilaudid earlier for pain. Sleeping now, very drowsy. PO meds held for now r/t pt being drowsy
--- NOTE | 2017-07-14 22:22 | NUR ---
Pt has been sleeping since medicated with dilaudid. No other change in assessment. No further complaints.
[2017-07-14 23:07] VITALS: BP 144/83; PULSE 75; TEMP 36.9; O2SAT 96
[2017-07-15] VITALS (7 sets, daily range): BP systolic 122–154; BP diastolic 60–83; PULSE 71–98; TEMP 36.2–37.2; O2SAT 91–99
--- NOTE | 2017-07-15 00:01 | NUR ---
Pt in bed, resting. Responds to verbal stimuli. Alert to self. Sitter at bedside. C/o pain, medicated per request. Assessment complete, for details see EMR. NSR with PACs and occasional PVCs. Call walsh within reach, sitter encouraged to ring for assistance if needed. Will continue to monitor.
[2017-07-15] MEDS: HYDROmorphone INJ 0.5 MG/0.5 ML SYR IV PRN ×6 (00:05→23:56)
[2017-07-15] MEDS: D5NSS + 20MEQ KCL 1,000 ML IV SCH ×3 (01:45→22:07)
[2017-07-15] MEDS: INSULIN ASPART 100 UNITS/ML 3 ML PEN SC SCH ×4 (07:00→20:20)
[2017-07-15] MEDS: INSULIN GLARGINE SOLOSTAR 100 UNITS/ML 3 ML PEN SC SCH ×2 (08:12→20:21)
--- NOTE | 2017-07-15 08:35 | NUR ---
Pt sleeping but wakes to name. Refused breakfast and drinks. IVF infusing. Cannot take pills, MD notified; BP creeping up over past 24 hours. Tolerating 2 liters nasal canula. Palliative care consult placed for today.
[2017-07-15] MEDS: ATORVASTATIN 40 MG TAB PO SCH (09:00)
[2017-07-15] MEDS: CITALOPRAM 20 MG TAB PO SCH (09:00)
[2017-07-15] MEDS: MEMANTINE 10 MG TAB PO SCH ×2 (09:00→20:19)
[2017-07-15] MEDS: AMLODIPINE BESYLATE 5 MG TAB PO SCH (09:00)
[2017-07-15] MEDS: DOCUSATE SODIUM/SENNA 50/8.6MG TAB PO SCH ×2 (09:00→20:00)
--- NOTE | 2017-07-15 09:23 | NUR ---
Family meeting for palliative care set up for 12:30 today with [facility] palliative care BUSINESS UNIT LEADER. Son Carlos Manuel and Grand-daughter Elva notified.
--- NOTE | 2017-07-15 09:35 | NUR ---
Pain medicine given; pt repositioned. Does not tolerate repositioning well at all, very painful.
[2017-07-15] MEDS ORDERED: ENALAPRILAT IV 1.25 MG in DEXTROSE 5% 25ML 25 ML IV ONE (10:15)
--- NOTE | 2017-07-15 10:31 | Cardiology Follow-Up ---
Subjective Subjective Date of Service: Jul 15, 2017. Pt evaluation today including: conversation w/ patient, physical exam, chart review, lab review, review of studies, review of inpatient medication list Additional Details: Pt seen and examined, somewhat alert and responsive to questioning, but nods "yes" to all questions. Nursing reports hip pain with movement in bed only. Tele reviewed: sinus rhythm without arrhythmia or significant ectopy. Problem List Medical Problems: (1) Fall from bed Status: Acute (2) Hip fracture, right Status: Acute Review of Systems Respiratory: No see HPI, No cough, No sputum, No wheezing, No shortness of breath, No dyspnea on exertion, No dyspnea at rest, No hemoptysis, No problem reported Cardiac: No see HPI, No chest pain, No orthopnea, No PND, No edema, No claudication, No palpitations, No problem reported Objective Vital Signs Last Vital Signs Documentation Date Time Temp Pulse Resp B/P (MAP) Pulse Ox O2 Delivery O2 Flow Rate FiO2 07/15/17 09:21 75 20 154/83 (106) 97 Nasal Cannula 2.0 07/15/17 07:29 37.2 Physical Exam: General Appearance: no apparent distress, + pertinent finding (significantly confused) Eyes: bilateral eyes normal inspection, bilateral eyes PERRL, bilateral eyes EOMI ENT: normal ENT inspection, hearing grossly normal, pharynx normal Neck: supple, no adenopathy, thyroid normal, no JVD, no carotid bruits, trachea midline Respiratory/Chest: chest non-tender, lungs clear, normal breath sounds, no respiratory distress, no accessory muscle use Cardiovascular: regular rate, rhythm, + systolic murmur, + gallop/S4 (blowing 4 /6 mid to late ashley, rsb, 2nd ICS with radition to b/l carotids) Abdomen: normal bowel sounds, non tender, soft, no organomegaly Extremities: no pedal edema Skin: normal color, warm/dry, no rash Lymphatic: no adenopathy Assessment and Plan 1. s/p fall with subsequent hip fracture patient with some pain with movement discussed risks/benefits with family members on 07/14 and all agree that they would not wish to pursue surgery may benefit from pain management eval 2. valvular heart disease severe aortic stenosis mild to moderate mitral stenosis avoid volume depletion given preload dependence 3. hypertension currently unable to take oral meds will given low dose enalapril IV for bp control would consider palliative medicine consultation
--- NOTE | 2017-07-15 11:12 | NUR ---
Pt screened for admitting Dx of R hip fracture. Please refer to linked assessment Addendum: 07/15/17 at [address] Amended: Links added.
--- NOTE | 2017-07-15 11:43 | NUR ---
Pt drowsy, wakes easily to name. Fearful of moving due to pain, adding Fentanyl patch and continue IV Dilaudid. IVF infusing. Abx added for UTI. May patent/draining. Surgery has been cancelled; family meeting at 12:30 for taking pt home on Hosp[facility].
[2017-07-15] MEDS: ENOXAPARIN 40 MG/0.4 ML SYR SQ SCH (12:53)
[2017-07-15] MEDS ORDERED: FENTANYL 12 MCG/HR TDSY TD SCH (13:00)
--- NOTE | 2017-07-15 13:06 | NUR ---
Pt arrived back from PACU in bed with SCDs on. Monitor applied and vitals obtained. IVF hooked back up and infusing along with IV abx. Oncology MD in room speaking with pt about radiation and possible chemo needs in future and will need a PET scan outpatient. Call walsh in reach.
[2017-07-15] MEDS: CEFTRIAXONE SOD INJ 1 GM in DEXTROSE 5% ADD-VANTAGE 50ML 50 ML IV SCH (13:32)
--- NOTE | 2017-07-15 13:35 | Progress Note ---
Subjective Date of Service: Jul 15, 2017. Subjective Pt evaluation today including: conversation w/ patient, physical exam, lab review, review of studies, review of inpatient medication list Saw/examined the patient in room 206 She is demented; some grimacing - as per nursing, she was yelling out in pain when being rolled over BP slightly elevated - improving Problem List Medical Problems: (1) Fall from bed Status: Acute (2) Hip fracture, right Status: Acute Medications Current Inpatient Medications Medications (Trade) Dose Ordered Sig/Lucinda Route Start Time Stop Time Status Last Admin Dose Admin Potassium Chloride/Dextrose/ Sod Cl 1,000 ml @ 100 mls/hr Q10H IV 07/14/17 05:45 08/13/17 05:44 07/15/17 11:09 100 MLS/HR Ondansetron HCl (Zofran Inj) 4 mg Q6H PRN IV 07/14/17 02:15 08/13/17 02:14 Acetaminophen (Tylenol Tab) 650 mg Q6H PRN PO 07/14/17 02:15 08/13/17 02:14 Oxycodone HCl (Roxicodone Immediate Rel Tab) 5 mg Q4H PRN PO 07/14/17 02:15 07/28/17 02:14 Hydromorphone HCl (Dilaudid Inj) 0.25 mg Q1H PRN IV 07/14/17 02:15 07/28/17 02:14 Hydromorphone HCl (Dilaudid Inj) 0.5 mg Q1H PRN IV 07/14/17 02:15 07/28/17 02:14 07/15/17 09:35 0.5 MG Naloxone HCl (Narcan Inj) 0.1 mg PRN PRN IV 07/14/17 02:15 08/13/17 02:14 Polyethylene (Miralax Powder Packet) 17 gm DAILY PRN PO 07/14/17 02:15 08/13/17 02:14 Magnesium Hydroxide (Milk Of Magnesia Susp) 30 ml DAILY PRN PO 07/14/17 02:15 08/13/17 02:14 Bisacodyl (Dulcolax Supp) 10 mg DAILY PRN MO 07/14/17 02:15 08/13/17 02:14 Sodium Biphosphate/ Sodium Phosphate (Fleet Enema) 132 ml PRN PRN MO 07/14/17 02:15 Amlodipine Besylate (Norvasc Tab) 2.5 mg DAILY PO 07/14/17 09:00 08/13/17 08:59 Atorvastatin Calcium (Lipitor Tab) 80 mg DAILY PO 07/14/17 09:00 08/13/17 08:59 Citalopram Hydrobromide (celeXA TAB) 20 mg DAILY PO 07/14/17 09:00 08/13/17 08:59 Memantine (Namenda Tab) 10 mg Q12 PO 07/14/17 09:00 08/13/17 08:59 Senna/Docusate Sodium (Senokot S Tab) 1 tab BID PO 07/14/17 09:00 08/13/17 08:59 Insulin Aspart (novoLOG ASPART) SLIDING SCALE G... ACHS SC 07/14/17 11:00 08/13/17 10:59 Insulin Glargine (Lantus Solostar Pen) 4 units BID SC 07/14/17 09:00 08/13/17 08:59 07/14/17 22:02 4 UNITS Glucose (Glucose 40% Gel) 15-30 GRAMS 15 GRAMS... UD PRN PO 07/14/17 08:30 08/13/17 08:29 Glucose (Glucose Chew Tab) 4-8 Tablets 4 Tabl... UD PRN PO 07/14/17 08:30 08/13/17 08:29 Dextrose (Dextrose 50% 50ML Syringe) 25-50ML OF 50% DW IV FOR... UD PRN IV 07/14/17 08:30 08/13/17 08:29 Glucagon (Glucagon Inj) 1 mg UD PRN SQ 07/14/17 08:30 08/13/17 08:29 Enoxaparin Sodium (Lovenox Inj) 40 mg DAILY SQ 07/15/17 11:00 08/14/17 10:59 07/15/17 12:53 40 MG Enalaprilat 1.25 mg/Dextrose 26 ml @ 100 mls/hr BID IV 07/15/17 21:00 08/14/17 20:59 Fentanyl (Duragesic Patch) 12 mcg Q3D@1300 TD 07/15/17 13:00 07/29/17 12:59 07/15/17 13:09 12 MCG Miscellaneous (Fentanyl Patch Remove & Waste) 1 ea Q3D@1259 N/A 07/18/17 12:59 08/17/17 12:58 Miscellaneous Information (Check Fentanyl Patch Placement) 1 ea QS N/A 07/15/17 16:00 08/14/17 15:59 Ceftriaxone Sodium 1 gm/ Dextrose 50 ml @ 100 mls/hr Q24H IV 07/15/17 13:00 07/20/17 12:59 Objective Vital Signs Date Time Temp Pulse Resp B/P (MAP) Pulse Ox O2 Delivery O2 Flow Rate FiO2 07/15/17 12:36 80 122/65 (84) 07/15/17 12:10 Nasal Cannula 2.0 07/15/17 12:00 36.2 81 17 148/76 (100) 95 07/15/17 09:21 75 20 154/83 (106) 97 Nasal Cannula 2.0 07/15/17 08:00 Nasal Cannula 2.0 07/15/17 07:29 37.2 74 16 151/60 (90) 98 Nasal Cannula 2.0 152/72 (98) 07/15/17 04:00 Nasal Cannula 2.0 07/15/17 03:45 36.9 71 16 135/82 (99) 99 Nasal Cannula 2.5 07/14/17 23:59 Nasal Cannula 2.0 07/14/17 23:07 36.9 75 18 144/83 (103) 96 Nasal Cannula 2.5 07/14/17 20:01 37.3 85 22 129/62 (84) 96 Nasal Cannula 2.0 07/14/17 20:00 Nasal Cannula 2.0 07/14/17 16:00 Nasal Cannula 2.0 07/14/17 15:50 37.0 77 19 129/78 (95) 98 Nasal Cannula 2.0 Physical Exam General Appearance: + mild distress (secondary to pain) Respiratory/Chest: no respiratory distress, no accessory muscle use Cardiovascular: regular rate, rhythm, + systolic murmur Extremities: no pedal edema Neurologic/Psychiatric: + pertinent finding (+pleasantly demented) Laboratory Results Last 24 Hours Test 07/14/17 16:10 07/15/17 07:11 07/15/17 10:55 Bedside Glucose 139 mg/dl 129 mg/dl 155 mg/dl Assessment and Plan This is an 87 year old female with a PMH of advanced dementia, paroxysmal A. fib , severe aortic stenosis, HTN, HLD; recent CVA; presents secondary to a fall and a Hip Fracture R Hip Fracture Hip Radiograph = Acute moderately displaced intertrochanteric fracture of the right femur with significant angulation patient already was only transferring from bed to chair after speaking with cardiology regarding her severe aortic stenosis and high risk of surgery; after speaking with family - no surgery palliative care consulted Plan is to move patient to ast Then transfer to SNF when stable before possibly home with home hospice Currently, we have to manage her pain - fentanyl patch ordered HTN BP elevated pain is likely elevating BP can't take anything by mouth Vasotec ordered as per cardiology DVT ppx Lovenox DNR
--- NOTE | 2017-07-15 15:13 | NUR ---
Report called to RN receiving pt. Pt transferred in bed to room 420 with meds, chart and belongings. Family bedside. IVF infusing. Monitor removed. May patent/draining. SCD intact to left leg. 2 liters O2.
--- NOTE | 2017-07-15 15:25 | Palliative Care Consultation ---
Consultation Date of Consultation: Jul 15, 2017. Requesting Physician: Dr. García Attending Physician: Dr. García Reason for Consultation: Goals of care History of Present Illness This 87 year old female patient with PMH advanced dementia, paroxysmal afib, aortic stenosis, CAD, CVA and others listed below, presented to the hospital yesterday after suffering a [facility]. She had been sent to [facility] from [facility] after she was treated for acute CVA with residual diplopia/visual disturbance and worsening dementia. Cardiology was consulted as patient has long-standing cardiac history and to clear for surgery on the right hip. Stat echocardiogram was performed which revealed severe aortic stenosis and moderate mitral stenosis. Patient is deemed to be very high risk surgical candidate, and given the fact that patient was quite debilitated prior to the fall, risk outweighs benefit. Field Auto Appraiser conveyed the risk to family, and they chose for patient to not undergo surgery. Palliative care is now consulted to assist with establishing goals of care. I met with the patient in room 206 first around 1130 this AM. She was awake, but agitated, confused and disoriented. Wound only answer questions with, "Please don't do this to me." She was also asking for "Michelle," who is her sister. Patient did say "yes" when asked if she was in pain, but could not elaborate. She was medicated with a PRN dose of Dilaudid and a 12mcg fentanyl patch was placed. I later met with family at 1230 for family meeting-- two sons Goran and Chance, two [id number], and granddaughter Elva who is a mold presser here at [facility]. After discussion, family did confirm that the patient will not be undergoing surgery and they'd like to focus on comfort. See plan below. Past Medical/Surgical History Medical History: Paroxysmal afib Dementia, moderate to severe CVA just this month 07/11 Aortic stenosis CAD DM type 2 Neuropathy, diabetic Right femur fracture several years ago s/p ORIF HLD Hyperparathyroidism Htn Surgical History: Cardiac catheterization Cataract removal Hysterectomy Social History Smoking Status: Never Smoker History of Alcohol Use: No Marital Status: Housing Status: lives with family Occupation Status: retired Review of Systems Constitutional: + weakness Musculoskeletal: + problem reported (right hip pain) Psychiatric: + anxiety (reported by family) Fully ROS not able to be obtained due to altered mental status Allergies Coded Allergies: No Known Allergies (Unverified , 07/14/17) Medications Current Inpatient Medications Medications (Trade) Dose Ordered Sig/Lucinda Route Start Time Stop Time Status Last Admin Dose Admin Potassium Chloride/Dextrose/ Sod Cl 1,000 ml @ 100 mls/hr Q10H IV 07/14/17 05:45 08/13/17 05:44 07/15/17 11:09 100 MLS/HR Ondansetron HCl (Zofran Inj) 4 mg Q6H PRN IV 07/14/17 02:15 08/13/17 02:14 Acetaminophen (Tylenol Tab) 650 mg Q6H PRN PO 07/14/17 02:15 08/13/17 02:14 Oxycodone HCl (Roxicodone Immediate Rel Tab) 5 mg Q4H PRN PO 07/14/17 02:15 07/28/17 02:14 Hydromorphone HCl (Dilaudid Inj) 0.25 mg Q1H PRN IV 07/14/17 02:15 07/28/17 02:14 Hydromorphone HCl (Dilaudid Inj) 0.5 mg Q1H PRN IV 07/14/17 02:15 07/28/17 02:14 07/15/17 13:33 0.5 MG Naloxone HCl (Narcan Inj) 0.1 mg PRN PRN IV 07/14/17 02:15 08/13/17 02:14 Polyethylene (Miralax Powder Packet) 17 gm DAILY PRN PO 07/14/17 02:15 08/13/17 02:14 Magnesium Hydroxide (Milk Of Magnesia Susp) 30 ml DAILY PRN PO 07/14/17 02:15 08/13/17 02:14 Bisacodyl (Dulcolax Supp) 10 mg DAILY PRN [place] 07/14/17 02:15 08/13/17 02:14 Sodium Biphosphate/ Sodium Phosphate (Fleet Enema) 132 ml PRN PRN [place] 07/14/17 02:15 Amlodipine Besylate (Norvasc Tab) 2.5 mg DAILY PO 07/14/17 09:00 08/13/17 08:59 Atorvastatin Calcium (Lipitor Tab) 80 mg DAILY PO 07/14/17 09:00 1/19/18 08:59 Citalopram Hydrobromide (celeXA TAB) 20 mg DAILY PO 07/14/17 09:00 08/13/17 08:59 Memantine (Namenda Tab) 10 mg Q12 PO 07/14/17 09:00 08/13/17 08:59 Senna/Docusate Sodium (Senokot S Tab) 1 tab BID PO 07/14/17 09:00 08/13/17 08:59 Insulin Aspart (novoLOG ASPART) SLIDING SCALE G... ACHS SC 07/14/17 11:00 08/13/17 10:59 Insulin Glargine (Lantus Solostar Pen) 4 units BID SC 07/14/17 09:00 08/13/17 08:59 07/14/17 22:02 4 UNITS Glucose (Glucose 40% Gel) 15-30 GRAMS 15 GRAMS... UD PRN PO 07/14/17 08:30 08/13/17 08:29 Glucose (Glucose Chew Tab) 4-8 Tablets 4 Tabl... UD PRN PO 07/14/17 08:30 08/13/17 08:29 Dextrose (Dextrose 50% 50ML Syringe) 25-50ML OF 50% DW IV FOR... UD PRN IV 07/14/17 08:30 08/13/17 08:29 Glucagon (Glucagon Inj) 1 mg UD PRN SQ 07/14/17 08:30 08/13/17 08:29 Enoxaparin Sodium (Lovenox Inj) 40 mg DAILY SQ 07/15/17 11:00 08/14/17 10:59 07/15/17 12:53 40 MG Enalaprilat 1.25 mg/Dextrose 26 ml @ 100 mls/hr BID IV 07/15/17 21:00 08/14/17 20:59 Fentanyl (Duragesic Patch) 12 mcg Q3D@1300 TD 07/15/17 13:00 07/29/17 12:59 07/15/17 13:09 12 MCG Miscellaneous (Fentanyl Patch Remove & Waste) 1 ea Q3D@1259 N/A 07/18/17 12:59 08/17/17 12:58 Miscellaneous Information (Check Fentanyl Patch Placement) 1 ea QS N/A 07/15/17 16:00 08/14/17 15:59 Ceftriaxone Sodium 1 gm/ Dextrose 50 ml @ 100 mls/hr Q24H IV 07/15/17 13:00 07/20/17 12:59 07/15/17 13:32 100 MLS/HR Physical Exam Date Time Temp Pulse Resp B/P (MAP) Pulse Ox O2 Delivery O2 Flow Rate FiO2 07/15/17 12:36 80 122/65 (84) 07/15/17 12:10 Nasal Cannula 2.0 07/15/17 12:00 36.2 81 17 148/76 (100) 95 07/15/17 09:21 75 20 154/83 (106) 97 Nasal Cannula 2.0 07/15/17 08:00 Nasal Cannula 2.0 07/15/17 07:29 37.2 74 16 151/60 (90) 98 Nasal Cannula 2.0 152/72 (98) 07/15/17 04:00 Nasal Cannula 2.0 07/15/17 03:45 36.9 71 16 135/82 (99) 99 Nasal Cannula 2.5 07/14/17 23:59 Nasal Cannula 2.0 07/14/17 23:07 36.9 75 18 144/83 (103) 96 Nasal Cannula 2.5 07/14/17 20:01 37.3 85 22 129/62 (84) 96 Nasal Cannula 2.0 07/14/17 20:00 Nasal Cannula 2.0 07/14/17 16:00 Nasal Cannula 2.0 07/14/17 15:50 37.0 77 19 129/78 (95) 98 Nasal Cannula 2.0 General Appearance: + mild distress (was in mild distress until pain medicine given, now is resting more comfortably in bed) ENT: hearing grossly normal Neck: supple, no JVD Respiratory: no respiratory distress, no accessory muscle use, + decreased breath sounds Cardiovascular: regular rate, rhythm, no edema, + normal peripheral pulses Abdomen: normal bowel sounds, non tender, soft Neurologic/Psychiatric: alert, + disoriented Skin: + pallor Laboratory Results Last 24 Hours Test 07/14/17 16:10 07/15/17 07:11 07/15/17 10:55 Bedside Glucose 139 mg/dl 129 mg/dl 155 mg/dl Assessment & Plan Problem list: Pain, right hip Altered mental status- delirium superimposed on dementia Moderate to severe dementia at baseline per the family's reports S/P fall and right hip fracture Severe aortic stenosis, moderate mitral stenosis Recent CVA with residual diplopia and visual field disturbance UTI- strep Goals of care (Z51.5) Palliative care recs: discussed during family meeting with patient's two sons Goran and Chance, two [id number], and granddaughter Elva. -Patient is level 5/DNR. -Patient's listed decision maker is her Eliel who has apparently handed the decision making down to his son, Goran Mckoy. -No surgical intervention for the hip fracture per the family due to the mortality risk given patient's advanced age and comorbidities. The son, Goran, was able to talk with critical systems technician yesterday. All family is in agreement. -Goal is more for comfort and pain control rather than "getting better." Family is realistic in the fact that patient did not really ambulate much prior to the CVA and hip fracture. They do not expect her to get much better. -They are okay with continuing IV abx at this time to see if it could possibly improve her mentation/agitation. She is NOT currently "comfort measures only," as of now. Will continue to reevaluate daily. -Family is okay with secondary side effects of pain medication such as sedation , they just do not want the patient to suffer or be in pain. -Plan will be for transfer out of telemetry to [facility]. Then to SNF ([facility]) for comfort care. Ultimate goal would be to get patient home with hospice if possible. -Further discussions to be had. Thank you kindly for this consult. I will follow.
--- NOTE | 2017-07-15 15:28 | NUR ---
Case Management- Patient transferred to [facility] report given to unit case management. Patient has a referral to [facility] she has been accepted they are aware she is not having surgery on hip palliative on board. Per alvin they typically use [facility], [facility]. CM following
--- NOTE | 2017-07-15 16:00 | NUR ---
A: Patient transferred to room 420. Alert to self only. Denies pain at this time. Breath sounds diminished on room air. May intact and patent. D5NS +20K infusing through left forearm site. Granddaughter at bedside. Call walsh and bedside table are within reach. Bed alarm on for safety.
[2017-07-15] MEDS: CHECK FENTANYL PATCH PLACEMENT SCH ×2 (16:07→23:46)
[2017-07-15] MEDS: ENALAPRILAT IV 1.25 MG in DEXTROSE 5% 25ML 25 ML IV SCH (20:18)
--- NOTE | 2017-07-15 21:43 | NUR ---
ID: Patient admitted with right hip fracture. Patient is alert to self only and confused. Unable to reorient. Denies pain except when turning and positioning. Fentanyl patch intact to left forearm. Refusing meals and medications. D5NS+20K continues to infuse through left forearm site. +2 assist in bed. May patent and draining. Optifoam intact to left forearm skin tear. Palliative care following. Bed alarm on for safety. D/C uncertain at this time. Will continue to monitor.
[2017-07-16] VITALS: O2SAT 92
[2017-07-16 00:26] VITALS: BP 121/70; PULSE 102; TEMP 37.4
[2017-07-16] MEDS: HYDROmorphone INJ 0.5 MG/0.5 ML SYR IV PRN ×4 (07:26→23:31)
[2017-07-16] MEDS: INSULIN ASPART 100 UNITS/ML 3 ML PEN SC SCH ×4 (07:58→20:55)
[2017-07-16] MEDS: D5NSS + 20MEQ KCL 1,000 ML IV SCH ×2 (07:59→18:00)
[2017-07-16] MEDS: ATORVASTATIN 40 MG TAB PO SCH (08:00)
[2017-07-16] MEDS: MEMANTINE 10 MG TAB PO SCH ×2 (08:00→20:55)
[2017-07-16] MEDS: CITALOPRAM 20 MG TAB PO SCH (08:00)
[2017-07-16] MEDS: CHECK FENTANYL PATCH PLACEMENT SCH ×3 (08:00→23:34)
[2017-07-16] MEDS: DOCUSATE SODIUM/SENNA 50/8.6MG TAB PO SCH ×2 (08:00→20:00)
[2017-07-16] MEDS: AMLODIPINE BESYLATE 5 MG TAB PO SCH (08:00)
[2017-07-16 08:04] VITALS: BP 138/70; PULSE 90; TEMP 37.3; O2SAT 95
--- NOTE | 2017-07-16 09:09 | Palliative Care Progress Note ---
Palliative Care Progress Note Date of Service Jul 16, 2017. Subjective Pt evaluation today including: conversation w/ patient, physical exam, chart review, review of inpatient medication list Pain: "no" PO Intake: minimal Voiding: collier catheter in place -Patient is more calm and peaceful today. Still disoriented, did not know she was in hospital, did not recall breaking her hip. -Stated she has no pain at this time, has required 5 doses of 0.5mg IV Dilaudid in last 24 hours. -Continuously asked, "Am I dreaming?" Limited ROS due to AMS. Review of Systems Full ROS unable to be obtained due to AMS Objective Vital Signs Date Time Temp Pulse Resp B/P (MAP) Pulse Ox O2 Delivery O2 Flow Rate FiO2 07/16/17 08:04 37.3 90 14 138/70 (92) 95 Room Air 07/16/17 00:26 37.4 102 18 121/70 (87) 07/16/17 00:00 92 Room Air 07/16/17 00:00 Room Air 07/15/17 16:20 Room Air 07/15/17 15:41 36.7 98 20 134/70 (91) 91 Room Air 07/15/17 15:10 36.2 80 17 95 2.0 07/15/17 12:36 80 122/65 (84) 07/15/17 12:10 Nasal Cannula 2.0 07/15/17 12:00 36.2 81 17 148/76 (100) 95 07/15/17 09:21 75 20 154/83 (106) 97 Nasal Cannula 2.0 Physical Exam General Appearance: no apparent distress, + pertinent finding (chronically ill appearing) Eyes: + pertinent finding (strabismus) ENT: hearing grossly normal Neck: supple, no JVD Respiratory/Chest: no respiratory distress, no accessory muscle use ( ), + decreased breath sounds Cardiovascular: regular rate, rhythm, + systolic murmur, + normal peripheral pulses Abdomen: normal bowel sounds, non tender, soft Extremities: + pertinent finding (right leg externally rotated) Neurologic/Psychiatric: alert, + disoriented Skin: normal color Laboratory Results Last 24 Hours Test 07/15/17 10:55 07/15/17 16:35 07/15/17 20:15 07/16/17 07:58 Bedside Glucose 155 mg/dl 182 mg/dl 163 mg/dl 145 mg/dl Assessment and Plan Problem list: Pain, right hip Altered mental status- delirium superimposed on dementia Moderate to severe dementia at baseline per the family's reports S/P fall and right hip fracture Severe aortic stenosis, moderate mitral stenosis Recent CVA with residual diplopia and visual field disturbance UTI- strep Goals of care (Z51.5) Palliative care recs: -Patient has not been made "comfort measures only," but we are essentially just focusing on comfort. -Patient is not eating/drinking or taking pills for last couple days- family is aware and okay with it. No artificial feeding to be given per patient's living will and family. -No surgery for hip fracture, will not be out of bed or able to participate in therapy. -Will likely transition to SNF for comfort, family hopes some day they may be able to get patient home with hospice. -Had 5 doses of 0.5mg IV Dilaudid in last 24 hours. This converts to 50mg morphine equivalent. Would switch to Roxanol 5mg PO Q2h PRN pain or SOB to prepare for discharge. -Continue fentanyl patch 12mcg/hr for now. This can be increased to 25mcg/hr if needed. -Remains on IV abx for UTI. Family wanted to continue this for now. Thank you again for consulting me on this patient. Continued [facility] stay due to: multiple IV medications needed, home environment unsafe for pt Discharge planning: uncertain
[2017-07-16] MEDS: ENOXAPARIN 40 MG/0.4 ML SYR SQ SCH (09:41)
[2017-07-16] MEDS: INSULIN GLARGINE SOLOSTAR 100 UNITS/ML 3 ML PEN SC SCH ×2 (09:41→20:51)
[2017-07-16] MEDS: ENALAPRILAT IV 1.25 MG in DEXTROSE 5% 25ML 25 ML IV SCH ×2 (09:46→20:51)
--- NOTE | 2017-07-16 13:33 | Progress Note ---
Subjective Date of Service: Jul 16, 2017. Subjective Pt evaluation today including: physical exam, lab review, review of studies, review of inpatient medication list Saw/examined the patient in room 420 she's laying comfortably - does not appear to be in distress or pain Problem List Medical Problems: (1) Fall from bed Status: Acute (2) Hip fracture, right Status: Acute Medications Current Inpatient Medications Medications (Trade) Dose Ordered Sig/Lucinda Route Start Time Stop Time Status Last Admin Dose Admin Potassium Chloride/Dextrose/ Sod Cl 1,000 ml @ 100 mls/hr Q10H IV 07/14/17 05:45 08/13/17 05:44 07/16/17 07:59 100 MLS/HR Ondansetron HCl (Zofran Inj) 4 mg Q6H PRN IV 07/14/17 02:15 08/13/17 02:14 Acetaminophen (Tylenol Tab) 650 mg Q6H PRN PO 07/14/17 02:15 08/13/17 02:14 Oxycodone HCl (Roxicodone Immediate Rel Tab) 5 mg Q4H PRN PO 07/14/17 02:15 07/28/17 02:14 Hydromorphone HCl (Dilaudid Inj) 0.25 mg Q1H PRN IV 07/14/17 02:15 07/28/17 02:14 Hydromorphone HCl (Dilaudid Inj) 0.5 mg Q1H PRN IV 07/14/17 02:15 07/28/17 02:14 07/16/17 11:44 0.5 MG Naloxone HCl (Narcan Inj) 0.1 mg PRN PRN IV 07/14/17 02:15 08/13/17 02:14 Polyethylene (Miralax Powder Packet) 17 gm DAILY PRN PO 07/14/17 02:15 08/13/17 02:14 Magnesium Hydroxide (Milk Of Magnesia Susp) 30 ml DAILY PRN PO 07/14/17 02:15 08/13/17 02:14 Bisacodyl (Dulcolax Supp) 10 mg DAILY PRN [place] 07/14/17 02:15 08/13/17 02:14 Sodium Biphosphate/ Sodium Phosphate (Fleet Enema) 132 ml PRN PRN [place] 07/14/17 02:15 Amlodipine Besylate (Norvasc Tab) 2.5 mg DAILY PO 07/14/17 09:00 08/13/17 08:59 Atorvastatin Calcium (Lipitor Tab) 80 mg DAILY PO 07/14/17 09:00 08/13/17 08:59 Citalopram Hydrobromide (celeXA TAB) 20 mg DAILY PO 07/14/17 09:00 08/13/17 08:59 Memantine (Namenda Tab) 10 mg Q12 PO 07/14/17 09:00 08/13/17 08:59 Senna/Docusate Sodium (Senokot S Tab) 1 tab BID PO 07/14/17 09:00 08/13/17 08:59 Insulin Aspart (novoLOG ASPART) SLIDING SCALE G... ACHS SC 07/14/17 11:00 08/13/17 10:59 Insulin Glargine (Lantus Solostar Pen) 4 units BID SC 07/14/17 09:00 08/13/17 08:59 07/16/17 09:41 4 UNITS Glucose (Glucose 40% Gel) 15-30 GRAMS 15 GRAMS... UD PRN PO 07/14/17 08:30 08/13/17 08:29 Glucose (Glucose Chew Tab) 4-8 Tablets 4 Tabl... UD PRN PO 07/14/17 08:30 08/13/17 08:29 Dextrose (Dextrose 50% 50ML Syringe) 25-50ML OF 50% DW IV FOR... UD PRN IV 07/14/17 08:30 08/13/17 08:29 Glucagon (Glucagon Inj) 1 mg UD PRN SQ 07/14/17 08:30 08/13/17 08:29 Enoxaparin Sodium (Lovenox Inj) 40 mg DAILY SQ 07/15/17 11:00 08/14/17 10:59 07/16/17 09:41 40 MG Enalaprilat 1.25 mg/Dextrose 26 ml @ 100 mls/hr BID IV 07/15/17 20:00 08/14/17 20:59 07/16/17 09:46 100 MLS/HR Fentanyl (Duragesic Patch) 12 mcg Q3D@1300 TD 07/15/17 13:00 07/29/17 12:59 07/15/17 13:09 12 MCG Miscellaneous (Fentanyl Patch Remove & Waste) 1 ea Q3D@1259 N/A 07/18/17 12:59 08/17/17 12:58 Miscellaneous Information (Check Fentanyl Patch Placement) 1 ea QS N/A 07/15/17 16:00 08/14/17 15:59 07/16/17 08:00 1 EA Ceftriaxone Sodium 1 gm/ Dextrose 50 ml @ 100 mls/hr Q24H IV 07/15/17 13:00 07/20/17 12:59 07/15/17 13:32 100 MLS/HR Morphine Sulfate (Roxanol Oral Soln) 5 mg Q2HWA PRN PO 07/16/17 13:15 07/30/17 13:14 Objective Vital Signs Date Time Temp Pulse Resp B/P (MAP) Pulse Ox O2 Delivery O2 Flow Rate FiO2 07/16/17 08:04 37.3 90 14 138/70 (92) 95 Room Air 07/16/17 08:00 Room Air 07/16/17 00:26 37.4 102 18 121/70 (87) 07/16/17 00:00 92 Room Air 07/16/17 00:00 Room Air 07/15/17 16:20 Room Air 07/15/17 15:41 36.7 98 20 134/70 (91) 91 Room Air 07/15/17 15:10 36.2 80 17 95 2.0 Physical Exam General Appearance: no apparent distress Respiratory/Chest: no respiratory distress, no accessory muscle use Cardiovascular: regular rate, rhythm, no edema, no murmur Laboratory Results Last 24 Hours Test 07/15/17 16:35 07/15/17 20:15 07/16/17 07:58 07/16/17 11:23 Bedside Glucose 182 mg/dl 163 mg/dl 145 mg/dl 145 mg/dl Assessment and Plan This is an 87 year old female with a PMH of advanced dementia, paroxysmal A. fib , severe aortic stenosis, HTN, HLD; recent CVA; presents secondary to a fall and a Hip Fracture R Hip Fracture 07/16 Fentanyl patch 12.5mcg added Roxanol SL added will see if we can wean off of IV pain medications 07/15 Hip Radiograph = Acute moderately displaced intertrochanteric fracture of the right femur with significant angulation patient already was only transferring from bed to chair after speaking with cardiology regarding her severe aortic stenosis and high risk of surgery; after speaking with family - no surgery palliative care consulted Plan is to move patient to [facility] Then transfer to SNF when stable before possibly home with home hospice Currently, we have to manage her pain - fentanyl patch ordered HTN BP elevated pain is likely elevating BP can't take anything by mouth Vasotec ordered as per cardiology DVT ppx Lovenox DNR Continued [facility] stay due to: multiple IV medications needed, home environment unsafe for pt Discharge planning: uncertain
[2017-07-16] MEDS: CEFTRIAXONE SOD INJ 1 GM in DEXTROSE 5% ADD-VANTAGE 50ML 50 ML IV SCH (13:37)
[2017-07-16 14:40] VITALS: BP 140/90; PULSE 67; TEMP 37.3; O2SAT 93
--- NOTE | 2017-07-16 15:52 | NUR ---
Chart reviewed. Acute care continues. Patient plans on going to [place] for rehab when medically stable. Will follow for discharge planning.
[2017-07-16] MEDS: MoRPHine SULFATE 5 MG/0.25 ML UDP PO PRN ×2 (15:59→21:30)
[2017-07-16 20:50] VITALS: BP 159/94; PULSE 92; O2SAT 97
--- NOTE | 2017-07-16 23:00 | NUR ---
ID: Pt is alert to person only. VSS. Lung sounds are clear and diminished on R/A. Yells out when painful. PRN pain meds given see EMAR. May draining clear yellow urine. Fluids continue to infuse at 100ml/hr. Pt has been taking very little PO intake. Nitrocellulose Maker following for D/C. Will continue to monitor.
[2017-07-17 00:09] VITALS: BP 148/97; PULSE 110; TEMP 37.1; O2SAT 94
[2017-07-17] MEDS: MoRPHine SULFATE 5 MG/0.25 ML UDP PO PRN ×4 (02:10→20:52)
[2017-07-17] MEDS: D5NSS + 20MEQ KCL 1,000 ML IV SCH ×2 (04:20→15:12)
[2017-07-17] MEDS: INSULIN ASPART 100 UNITS/ML 3 ML PEN SC SCH ×4 (06:30→20:54)
[2017-07-17 07:35] VITALS: BP 138/77; PULSE 98; TEMP 37.3; O2SAT 96
[2017-07-17] MEDS: CHECK FENTANYL PATCH PLACEMENT SCH ×2 (08:00→17:11)
[2017-07-17] MEDS: ATORVASTATIN 40 MG TAB PO SCH (08:00)
[2017-07-17] MEDS: CITALOPRAM 20 MG TAB PO SCH (08:00)
[2017-07-17] MEDS: DOCUSATE SODIUM/SENNA 50/8.6MG TAB PO SCH ×2 (08:00→20:00)
[2017-07-17] MEDS: AMLODIPINE BESYLATE 5 MG TAB PO SCH (08:00)
[2017-07-17 08:30] VITALS: O2SAT 96
[2017-07-17] MEDS: MEMANTINE 10 MG TAB PO SCH ×2 (09:00→20:54)
[2017-07-17] MEDS: ENOXAPARIN 40 MG/0.4 ML SYR SQ SCH (09:11)
[2017-07-17] MEDS: INSULIN GLARGINE SOLOSTAR 100 UNITS/ML 3 ML PEN SC SCH ×2 (09:19→20:56)
[2017-07-17] MEDS: ENALAPRILAT IV 1.25 MG in DEXTROSE 5% 25ML 25 ML IV SCH ×2 (09:20→20:51)
[2017-07-17] MEDS: HYDROmorphone INJ 0.5 MG/0.5 ML SYR IV PRN ×2 (10:35→12:44)
[2017-07-17] MEDS: CEFTRIAXONE SOD INJ 1 GM in DEXTROSE 5% ADD-VANTAGE 50ML 50 ML IV SCH (12:44)
--- NOTE | 2017-07-17 13:29 | Progress Note ---
Subjective Date of Service: Jul 17, 2017. Subjective Pt evaluation today including: conversation w/ family, physical exam, lab review, review of studies, review of inpatient medication list Saw/examined the patient in room 420 Family is at bedside including [id number] She is resting comfortably at the moment As per nursing, she was agitated and moaning earlier Given a Fentanyl patch and sublingual Roxanol so far No other needs verbalized by family Problem List Medical Problems: (1) Fall from bed Status: Acute (2) Hip fracture, right Status: Acute Medications Current Inpatient Medications Medications (Trade) Dose Ordered Sig/Lucinda Route Start Time Stop Time Status Last Admin Dose Admin Potassium Chloride/Dextrose/ Sod Cl 1,000 ml @ 100 mls/hr Q10H IV 07/14/17 05:45 08/13/17 05:44 07/17/17 04:20 100 MLS/HR Ondansetron HCl (Zofran Inj) 4 mg Q6H PRN IV 07/14/17 02:15 08/13/17 02:14 Acetaminophen (Tylenol Tab) 650 mg Q6H PRN PO 07/14/17 02:15 08/13/17 02:14 Oxycodone HCl (Roxicodone Immediate Rel Tab) 5 mg Q4H PRN PO 07/14/17 02:15 07/28/17 02:14 Hydromorphone HCl (Dilaudid Inj) 0.25 mg Q1H PRN IV 07/14/17 02:15 07/28/17 02:14 07/17/17 04:15 0.25 MG Hydromorphone HCl (Dilaudid Inj) 0.5 mg Q1H PRN IV 07/14/17 02:15 07/28/17 02:14 07/17/17 12:44 0.5 MG Naloxone HCl (Narcan Inj) 0.1 mg PRN PRN IV 07/14/17 02:15 08/13/17 02:14 Polyethylene (Miralax Powder Packet) 17 gm DAILY PRN PO 07/14/17 02:15 08/13/17 02:14 Magnesium Hydroxide (Milk Of Magnesia Susp) 30 ml DAILY PRN PO 07/14/17 02:15 08/13/17 02:14 Bisacodyl (Dulcolax Supp) 10 mg DAILY PRN [place] 07/14/17 02:15 08/13/17 02:14 Sodium Biphosphate/ Sodium Phosphate (Fleet Enema) 132 ml PRN PRN [place] 07/14/17 02:15 Amlodipine Besylate (Norvasc Tab) 2.5 mg DAILY PO 07/14/17 09:00 08/13/17 08:59 Atorvastatin Calcium (Lipitor Tab) 80 mg DAILY PO 07/14/17 09:00 08/13/17 08:59 Citalopram Hydrobromide (celeXA TAB) 20 mg DAILY PO 07/14/17 09:00 08/13/17 08:59 Memantine (Namenda Tab) 10 mg Q12 PO 07/14/17 09:00 08/13/17 08:59 Senna/Docusate Sodium (Senokot S Tab) 1 tab BID PO 07/14/17 09:00 08/13/17 08:59 Insulin Aspart (novoLOG ASPART) SLIDING SCALE G... ACHS SC 07/14/17 11:00 08/13/17 10:59 Insulin Glargine (Lantus Solostar Pen) 4 units BID SC 07/14/17 09:00 08/13/17 08:59 07/17/17 09:19 4 UNITS Glucose (Glucose 40% Gel) 15-30 GRAMS 15 GRAMS... UD PRN PO 07/14/17 08:30 08/13/17 08:29 Glucose (Glucose Chew Tab) 4-8 Tablets 4 Tabl... UD PRN PO 07/14/17 08:30 08/13/17 08:29 Dextrose (Dextrose 50% 50ML Syringe) 25-50ML OF 50% DW IV FOR... UD PRN IV 07/14/17 08:30 08/13/17 08:29 Glucagon (Glucagon Inj) 1 mg UD PRN SQ 07/14/17 08:30 08/13/17 08:29 Enoxaparin Sodium (Lovenox Inj) 40 mg DAILY SQ 07/15/17 11:00 08/14/17 10:59 07/17/17 09:11 40 MG Enalaprilat 1.25 mg/Dextrose 26 ml @ 100 mls/hr BID IV 07/15/17 20:00 08/14/17 20:59 07/17/17 09:20 100 MLS/HR Ceftriaxone Sodium 1 gm/ Dextrose 50 ml @ 100 mls/hr Q24H IV 07/15/17 13:00 07/20/17 12:59 07/17/17 12:44 100 MLS/HR Morphine Sulfate (Roxanol Oral Soln) 5 mg Q2HWA PRN PO 07/16/17 13:15 07/30/17 13:14 07/17/17 09:09 5 MG Fentanyl (Duragesic Patch) 25 mcg Q72H TD 07/17/17 13:30 07/31/17 13:29 UNV Miscellaneous (Fentanyl Patch Remove & Waste) 1 ea Q3D N/A 07/20/17 13:30 08/19/17 13:29 UNV Miscellaneous Information (Check Fentanyl Patch Placement) 1 ea QS N/A 07/17/17 16:00 08/16/17 15:59 UNV Objective Vital Signs Date Time Temp Pulse Resp B/P (MAP) Pulse Ox O2 Delivery O2 Flow Rate FiO2 07/17/17 07:35 37.3 98 16 138/77 (97) 96 Room Air 07/17/17 00:09 37.1 110 20 148/97 (114) 94 Room Air 07/17/17 00:00 Room Air 07/16/17 20:50 92 159/94 (115) 97 Room Air 07/16/17 19:50 Room Air 07/16/17 16:00 Room Air 07/16/17 14:40 37.3 67 14 140/90 (107) 93 Physical Exam General Appearance: no apparent distress Respiratory/Chest: no respiratory distress, no accessory muscle use Cardiovascular: regular rate, rhythm Laboratory Results Last 24 Hours Test 07/16/17 16:11 07/16/17 20:17 07/17/17 07:55 07/17/17 11:29 Bedside Glucose 139 mg/dl 161 mg/dl 173 mg/dl 174 mg/dl Assessment and Plan This is an 87 year old female with a PMH of advanced dementia, paroxysmal A. fib , severe aortic stenosis, HTN, HLD; recent CVA; presents secondary to a fall and a Hip Fracture R Hip Fracture 07/17 increase the Fentanyl patch today Roxanol SL for breakthrough pain Ativan added goal is to decrease IV use until we can get her stable enough to be discharged to nursing facility 07/16 Fentanyl patch 12.5mcg added Roxanol SL added will see if we can wean off of IV pain medications 07/15 Hip Radiograph = Acute moderately displaced intertrochanteric fracture of the right femur with significant angulation patient already was only transferring from bed to chair after speaking with cardiology regarding her severe aortic stenosis and high risk of surgery; after speaking with family - no surgery palliative care consulted Plan is to move patient to [facility] Then transfer to SNF when stable before possibly home with home hospice Currently, we have to manage her pain - fentanyl patch ordered HTN BP elevated pain is likely elevating BP can't take anything by mouth Vasotec ordered as per cardiology DVT ppx Lovenox DNR Continued [facility] stay due to: multiple IV medications needed, home environment unsafe for pt Discharge planning: uncertain
[2017-07-17] MEDS ORDERED: LORAZEPAM 1 MG TAB PO STA (13:39)
[2017-07-17 15:08] VITALS: BP 128/81; PULSE 90; TEMP 36.4; O2SAT 96
[2017-07-17 16:30] VITALS: O2SAT 96
[2017-07-17] MEDS: FENTANYL PATCH REMOVE & WASTE SCH (16:47)
--- NOTE | 2017-07-17 17:00 | NUR ---
A: During PM assessment RLE noted to be pale and cool to touch from knee down. Cap refill in RLE sluggish. Pedal pulse found with doppler. MD notified. no new orders at this time. will continue to monitor.
[2017-07-17] MEDS: FENTANYL 25 MCG/HR TDSY TD SCH (17:11)
[2017-07-17 20:48] VITALS: BP 122/87; PULSE 107
[2017-07-18] VITALS (8 sets, daily range): BP systolic 107–134; BP diastolic 60–79; PULSE 58–106; TEMP 36.7–37.3; O2SAT 94–99
[2017-07-18] MEDS: CHECK FENTANYL PATCH PLACEMENT SCH ×3 (00:17→16:00)
[2017-07-18] MEDS: MoRPHine SULFATE 5 MG/0.25 ML UDP PO PRN ×4 (00:52→12:38)
[2017-07-18] MEDS: D5NSS + 20MEQ KCL 1,000 ML IV SCH (01:30)
--- NOTE | 2017-07-18 04:36 | NUR ---
ID: Pt is alert to person only. VSS. Lung sounds are clear and diminished on R/A. Yells out when painful. PRN Roxanol given see EMAR. May draining concentrated yellow urine. D5W + 20MEQ KCL infusing at 100ml/hr. Pt refuses PO intake. Nurse Epidemiologist following for D/C possibly to SNF. Will continue to monitor.
[2017-07-18] MEDS: INSULIN ASPART 100 UNITS/ML 3 ML PEN SC SCH ×4 (06:30→20:12)
[2017-07-18] MEDS: INSULIN GLARGINE SOLOSTAR 100 UNITS/ML 3 ML PEN SC SCH ×2 (07:59→20:00)
[2017-07-18] MEDS: ATORVASTATIN 40 MG TAB PO SCH (08:00)
[2017-07-18] MEDS: DOCUSATE SODIUM/SENNA 50/8.6MG TAB PO SCH ×2 (08:00→20:00)
[2017-07-18] MEDS: AMLODIPINE BESYLATE 5 MG TAB PO SCH (08:00)
[2017-07-18] MEDS: CITALOPRAM 20 MG TAB PO SCH (08:00)
[2017-07-18] MEDS: MEMANTINE 10 MG TAB PO SCH ×2 (09:00→20:13)
[2017-07-18] MEDS: ENALAPRILAT IV 1.25 MG in DEXTROSE 5% 25ML 25 ML IV SCH ×2 (09:05→20:13)
[2017-07-18] MEDS: ENOXAPARIN 40 MG/0.4 ML SYR SQ SCH (09:06)
--- NOTE | 2017-07-18 09:59 | Progress Note ---
Subjective Date of Service: Jul 18, 2017. Subjective Pt evaluation today including: physical exam Saw/examined the patient in room 420 she's laying comfortably In no distress Problem List Medical Problems: (1) Fall from bed Status: Acute (2) Hip fracture, right Status: Acute Medications Current Inpatient Medications Medications (Trade) Dose Ordered Sig/Lucinda Route Start Time Stop Time Status Last Admin Dose Admin Ondansetron HCl (Zofran Inj) 4 mg Q6H PRN IV 07/14/17 02:15 08/13/17 02:14 Acetaminophen (Tylenol Tab) 650 mg Q6H PRN PO 07/14/17 02:15 08/13/17 02:14 Oxycodone HCl (Roxicodone Immediate Rel Tab) 5 mg Q4H PRN PO 07/14/17 02:15 07/28/17 02:14 Hydromorphone HCl (Dilaudid Inj) 0.25 mg Q1H PRN IV 07/14/17 02:15 07/28/17 02:14 07/17/17 04:15 0.25 MG Hydromorphone HCl (Dilaudid Inj) 0.5 mg Q1H PRN IV 07/14/17 02:15 07/28/17 02:14 07/17/17 12:44 0.5 MG Naloxone HCl (Narcan Inj) 0.1 mg PRN PRN IV 07/14/17 02:15 08/13/17 02:14 Polyethylene (Miralax Powder Packet) 17 gm DAILY PRN PO 07/14/17 02:15 08/13/17 02:14 Magnesium Hydroxide (Milk Of Magnesia Susp) 30 ml DAILY PRN PO 07/14/17 02:15 08/13/17 02:14 Bisacodyl (Dulcolax Supp) 10 mg DAILY PRN [place] 07/14/17 02:15 08/13/17 02:14 Sodium Biphosphate/ Sodium Phosphate (Fleet Enema) 132 ml PRN PRN [place] 07/14/17 02:15 Amlodipine Besylate (Norvasc Tab) 2.5 mg DAILY PO 07/14/17 09:00 08/13/17 08:59 Atorvastatin Calcium (Lipitor Tab) 80 mg DAILY PO 07/14/17 09:00 08/13/17 08:59 Citalopram Hydrobromide (celeXA TAB) 20 mg DAILY PO 07/14/17 09:00 08/13/17 08:59 Memantine (Namenda Tab) 10 mg Q12 PO 07/14/17 09:00 08/13/17 08:59 Senna/Docusate Sodium (Senokot S Tab) 1 tab BID PO 07/14/17 09:00 08/13/17 08:59 Insulin Aspart (novoLOG ASPART) SLIDING SCALE G... ACHS SC 07/14/17 11:00 08/13/17 10:59 Insulin Glargine (Lantus Solostar Pen) 4 units BID SC 07/14/17 09:00 08/13/17 08:59 07/18/17 07:59 4 UNITS Glucose (Glucose 40% Gel) 15-30 GRAMS 15 GRAMS... UD PRN PO 07/14/17 08:30 08/13/17 08:29 Glucose (Glucose Chew Tab) 4-8 Tablets 4 Tabl... UD PRN PO 07/14/17 08:30 08/13/17 08:29 Dextrose (Dextrose 50% 50ML Syringe) 25-50ML OF 50% DW IV FOR... UD PRN IV 07/14/17 08:30 08/13/17 08:29 Glucagon (Glucagon Inj) 1 mg UD PRN SQ 07/14/17 08:30 08/13/17 08:29 Enoxaparin Sodium (Lovenox Inj) 40 mg DAILY SQ 07/15/17 11:00 08/14/17 10:59 07/18/17 09:06 40 MG Enalaprilat 1.25 mg/Dextrose 26 ml @ 100 mls/hr BID IV 07/15/17 20:00 08/14/17 20:59 07/18/17 09:05 100 MLS/HR Morphine Sulfate (Roxanol Oral Soln) 5 mg Q2HWA PRN PO 07/16/17 13:15 07/30/17 13:14 07/18/17 05:40 5 MG Fentanyl (Duragesic Patch) 25 mcg Q3D@1346 TD 07/17/17 13:46 07/31/17 13:45 07/17/17 17:11 25 MCG Miscellaneous (Fentanyl Patch Remove & Waste) 1 ea Q3D@1345 N/A 07/17/17 13:45 08/16/17 13:44 07/17/17 16:47 1 EA Miscellaneous Information (Check Fentanyl Patch Placement) 1 ea QS N/A 07/17/17 16:00 08/16/17 15:59 07/18/17 08:00 1 EA Lorazepam (Ativan Tab) 1 mg Q2HWA PRN PO 07/17/17 13:30 08/16/17 13:29 Objective Vital Signs Date Time Temp Pulse Resp B/P (MAP) Pulse Ox O2 Delivery O2 Flow Rate FiO2 07/18/17 08:45 96 Room Air 07/18/17 07:48 37.3 106 20 134/79 (97) 95 Room Air 07/18/17 01:38 Room Air 07/18/17 01:31 36.8 88 18 119/76 (90) 99 Room Air 07/18/17 00:44 36.7 72 20 07/17/17 20:48 107 122/87 (99) 07/17/17 20:00 Room Air 07/17/17 16:30 96 Room Air 07/17/17 15:08 36.4 90 18 128/81 (97) 96 Room Air Physical Exam General Appearance: no apparent distress Respiratory/Chest: no respiratory distress, no accessory muscle use Laboratory Results Last 24 Hours Test 07/17/17 11:29 07/17/17 16:24 07/17/17 20:29 07/18/17 07:48 Bedside Glucose 174 mg/dl 152 mg/dl 149 mg/dl 148 mg/dl Assessment and Plan This is an 87 year old female with a PMH of advanced dementia, paroxysmal A. fib , severe aortic stenosis, HTN, HLD; recent CVA; presents secondary to a fall and a Hip Fracture R Hip Fracture 07/18 doing well with Fentanyl and Roxanol d/c Rocephin, d/c fluids plan to d/c to SNF on Tuesday 07/17 increase the Fentanyl patch today Roxanol SL for breakthrough pain Ativan added goal is to decrease IV use until we can get her stable enough to be discharged to nursing facility 07/16 Fentanyl patch 12.5mcg added Roxanol SL added will see if we can wean off of IV pain medications 07/15 Hip Radiograph = Acute moderately displaced intertrochanteric fracture of the right femur with significant angulation patient already was only transferring from bed to chair after speaking with cardiology regarding her severe aortic stenosis and high risk of surgery; after speaking with family - no surgery palliative care consulted Plan is to move patient to [facility] Then transfer to SNF when stable before possibly home with home hospice Currently, we have to manage her pain - fentanyl patch ordered HTN BP elevated pain is likely elevating BP can't take anything by mouth Vasotec ordered as per cardiology DVT ppx Lovenox DNR Continued [facility] stay due to: multiple IV medications needed, home environment unsafe for pt Discharge planning: uncertain
[2017-07-18] MEDS: HYDROmorphone INJ 0.5 MG/0.5 ML SYR IV PRN (10:46)
[2017-07-18] MEDS ORDERED: FENTANYL PATCH REMOVE & WASTE SCH (12:59)
[2017-07-18] MEDS: LORAZEPAM 1 MG TAB PO PRN (15:35)
[2017-07-19] VITALS (8 sets, daily range): BP systolic 101–152; BP diastolic 66–96; PULSE 76–103; TEMP 36.6–37.1; O2SAT 90–98
[2017-07-19] MEDS: MoRPHine SULFATE 5 MG/0.25 ML UDP PO PRN ×2 (01:18→20:04)
[2017-07-19] MEDS: LORAZEPAM 1 MG TAB PO PRN (02:47)
--- NOTE | 2017-07-19 04:42 | NUR ---
ID: Pt is alert to person only. Ativan given once this shift and pt has been resting comfortably throughout the night. VSS. Lung sounds are clear and diminished on R/A. PRN Roxanol given see EMAR. May draining concentrated urine. SL noted. Collar Pointer following for D/C. Will continue to monitor.
[2017-07-19] MEDS: INSULIN ASPART 100 UNITS/ML 3 ML PEN SC SCH ×4 (06:30→20:00)
[2017-07-19] MEDS: INSULIN GLARGINE SOLOSTAR 100 UNITS/ML 3 ML PEN SC SCH ×2 (07:58→20:00)
[2017-07-19] MEDS: ATORVASTATIN 40 MG TAB PO SCH (08:00)
[2017-07-19] MEDS: CITALOPRAM 20 MG TAB PO SCH (08:00)
[2017-07-19] MEDS: AMLODIPINE BESYLATE 5 MG TAB PO SCH (08:00)
[2017-07-19] MEDS: DOCUSATE SODIUM/SENNA 50/8.6MG TAB PO SCH ×2 (08:00→20:00)
[2017-07-19] MEDS: ENALAPRILAT IV 1.25 MG in DEXTROSE 5% 25ML 25 ML IV SCH ×2 (08:09→20:32)
[2017-07-19] MEDS: CHECK FENTANYL PATCH PLACEMENT SCH ×4 (08:09→23:58)
[2017-07-19] MEDS: ENOXAPARIN 40 MG/0.4 ML SYR SQ SCH (08:10)
[2017-07-19] MEDS: MEMANTINE 10 MG TAB PO SCH ×2 (08:12→20:01)
[2017-07-19] MEDS: HYDROmorphone INJ 0.5 MG/0.5 ML SYR IV PRN ×2 (08:18→12:24)
--- NOTE | 2017-07-19 10:20 | Progress Note ---
Subjective Date of Service: Jul 19, 2017. Subjective Pt evaluation today including: conversation w/ patient, physical exam, lab review, review of studies, review of inpatient medication list Saw/examined the patient in room 420 She's comfortable, pleasantly demented; does not appear to be in distress Problem List Medical Problems: (1) Fall from bed Status: Acute (2) Hip fracture, right Status: Acute Medications Current Inpatient Medications Medications (Trade) Dose Ordered Sig/Lucinda Route Start Time Stop Time Status Last Admin Dose Admin Ondansetron HCl (Zofran Inj) 4 mg Q6H PRN IV 07/14/17 02:15 08/13/17 02:14 Acetaminophen (Tylenol Tab) 650 mg Q6H PRN PO 07/14/17 02:15 08/13/17 02:14 Oxycodone HCl (Roxicodone Immediate Rel Tab) 5 mg Q4H PRN PO 07/14/17 02:15 07/28/17 02:14 Hydromorphone HCl (Dilaudid Inj) 0.25 mg Q1H PRN IV 07/14/17 02:15 07/28/17 02:14 07/17/17 04:15 0.25 MG Hydromorphone HCl (Dilaudid Inj) 0.5 mg Q1H PRN IV 07/14/17 02:15 07/28/17 02:14 07/19/17 08:18 0.5 MG Naloxone HCl (Narcan Inj) 0.1 mg PRN PRN IV 07/14/17 02:15 08/13/17 02:14 Polyethylene (Miralax Powder Packet) 17 gm DAILY PRN PO 07/14/17 02:15 08/13/17 02:14 Magnesium Hydroxide (Milk Of Magnesia Susp) 30 ml DAILY PRN PO 07/14/17 02:15 08/13/17 02:14 Bisacodyl (Dulcolax Supp) 10 mg DAILY PRN [place] 07/14/17 02:15 08/13/17 02:14 Sodium Biphosphate/ Sodium Phosphate (Fleet Enema) 132 ml PRN PRN [place] 07/14/17 02:15 Amlodipine Besylate (Norvasc Tab) 2.5 mg DAILY PO 07/14/17 09:00 08/13/17 08:59 Atorvastatin Calcium (Lipitor Tab) 80 mg DAILY PO 07/14/17 09:00 08/13/17 08:59 Citalopram Hydrobromide (celeXA TAB) 20 mg DAILY PO 07/14/17 09:00 08/13/17 08:59 Memantine (Namenda Tab) 10 mg Q12 PO 07/14/17 09:00 08/13/17 08:59 Senna/Docusate Sodium (Senokot S Tab) 1 tab BID PO 07/14/17 09:00 08/13/17 08:59 Insulin Aspart (novoLOG ASPART) SLIDING SCALE G... ACHS SC 07/14/17 11:00 08/13/17 10:59 Insulin Glargine (Lantus Solostar Pen) 4 units BID SC 07/14/17 09:00 08/13/17 08:59 07/18/17 07:59 4 UNITS Glucose (Glucose 40% Gel) 15-30 GRAMS 15 GRAMS... UD PRN PO 07/14/17 08:30 08/13/17 08:29 Glucose (Glucose Chew Tab) 4-8 Tablets 4 Tabl... UD PRN PO 07/14/17 08:30 08/13/17 08:29 Dextrose (Dextrose 50% 50ML Syringe) 25-50ML OF 50% DW IV FOR... UD PRN IV 07/14/17 08:30 08/13/17 08:29 Glucagon (Glucagon Inj) 1 mg UD PRN SQ 07/14/17 08:30 08/13/17 08:29 Enoxaparin Sodium (Lovenox Inj) 40 mg DAILY SQ 07/15/17 11:00 08/14/17 10:59 07/19/17 08:10 40 MG Enalaprilat 1.25 mg/Dextrose 26 ml @ 100 mls/hr BID IV 07/15/17 20:00 08/14/17 20:59 07/19/17 08:09 100 MLS/HR Morphine Sulfate (Roxanol Oral Soln) 5 mg Q2HWA PRN PO 07/16/17 13:15 07/30/17 13:14 07/19/17 01:18 5 MG Fentanyl (Duragesic Patch) 25 mcg Q3D@1346 TD 07/17/17 13:46 07/31/17 13:45 07/17/17 17:11 25 MCG Miscellaneous (Fentanyl Patch Remove & Waste) 1 ea Q3D@1345 N/A 07/17/17 13:45 08/16/17 13:44 07/17/17 16:47 1 EA Miscellaneous Information (Check Fentanyl Patch Placement) 1 ea QS N/A 07/17/17 16:00 08/16/17 15:59 07/19/17 08:09 1 EA Lorazepam (Ativan Tab) 1 mg Q2HWA PRN PO 07/17/17 13:30 08/16/17 13:29 07/19/17 02:47 1 MG Objective Vital Signs Date Time Temp Pulse Resp B/P (MAP) Pulse Ox O2 Delivery O2 Flow Rate FiO2 07/19/17 07:44 Room Air 07/19/17 07:28 36.6 93 16 132/89 (103) 92 Room Air 07/19/17 04:00 36.6 91 18 101/70 (80) 94 Room Air 07/19/17 00:32 36.7 95 16 107/71 (83) 95 Room Air 07/19/17 00:00 Room Air 07/18/17 20:08 96 130/74 (92) 07/18/17 20:00 Room Air 07/18/17 19:48 36.7 95 18 124/78 (93) 94 Room Air 07/18/17 16:22 36.7 77 20 107/60 (76) 98 Room Air 07/18/17 16:00 96 Room Air Physical Exam General Appearance: no apparent distress Respiratory/Chest: no respiratory distress, no accessory muscle use Cardiovascular: regular rate, rhythm Laboratory Results Last 24 Hours Test 07/18/17 11:45 07/18/17 16:39 07/18/17 20:06 07/19/17 07:45 Bedside Glucose 136 mg/dl 103 mg/dl 114 mg/dl 114 mg/dl Assessment and Plan This is an 87 year old female with a PMH of advanced dementia, paroxysmal A. fib , severe aortic stenosis, HTN, HLD; recent CVA; presents secondary to a fall and a Hip Fracture R Hip Fracture 07/19 no distress continue Fentanyl with Roxanol for breakthrough stable for d/c to SNF; will await placement 07/18 doing well with Fentanyl and Roxanol d/c Rocephin, d/c fluids plan to d/c to SNF on Tuesday 07/17 increase the Fentanyl patch today Roxanol SL for breakthrough pain Ativan added goal is to decrease IV use until we can get her stable enough to be discharged to nursing facility 07/16 Fentanyl patch 12.5mcg added Roxanol SL added will see if we can wean off of IV pain medications 07/15 Hip Radiograph = Acute moderately displaced intertrochanteric fracture of the right femur with significant angulation patient already was only transferring from bed to chair after speaking with cardiology regarding her severe aortic stenosis and high risk of surgery; after speaking with family - no surgery palliative care consulted Plan is to move patient to [facility] Then transfer to SNF when stable before possibly home with home hospice Currently, we have to manage her pain - fentanyl patch ordered HTN BP elevated pain is likely elevating BP can't take anything by mouth Vasotec ordered as per cardiology DVT ppx Lovenox DNR Continued [facility] stay due to: multiple IV medications needed, home environment unsafe for pt Discharge planning: uncertain
--- NOTE | 2017-07-19 21:06 | NUR ---
A/ID: Pt admitted d/t arrhythmia and Right Hip Fracture, open eyes to name, moans when in pain, scream when repositioned- Medicated as needed, with SL at Left FA, Lungs are clear and diminished at RA, Hypoactive BS, soft, non distended abdomen, pillow underneath the affected leg, weak PP, BLE trace edema, with May draining with concentrate yellow urine.with fentanyl path at Right Upper arm, repositioned, CM following, Palliative consulted, D/c date uncertain at this time, DC plan going to SNF when medically stable or possible Home hospice. Will continue monitoring.
[2017-07-20] MEDS: MoRPHine SULFATE 5 MG/0.25 ML UDP PO PRN ×5 (00:04→12:49)
[2017-07-20] MEDS: LORAZEPAM 1 MG TAB PO PRN (03:41)
[2017-07-20] MEDS: INSULIN ASPART 100 UNITS/ML 3 ML PEN SC SCH ×4 (06:30→19:30)
[2017-07-20 07:17] VITALS: BP 125/80; PULSE 98; TEMP 36.9; O2SAT 90
[2017-07-20] MEDS: AMLODIPINE BESYLATE 5 MG TAB PO SCH (07:32)
[2017-07-20] MEDS: CITALOPRAM 20 MG TAB PO SCH (07:32)
[2017-07-20] MEDS: ATORVASTATIN 40 MG TAB PO SCH (07:32)
[2017-07-20] MEDS: DOCUSATE SODIUM/SENNA 50/8.6MG TAB PO SCH ×2 (07:32→19:30)
[2017-07-20] MEDS: INSULIN GLARGINE SOLOSTAR 100 UNITS/ML 3 ML PEN SC SCH ×2 (07:32→19:30)
[2017-07-20] MEDS: MEMANTINE 10 MG TAB PO SCH (07:33)
[2017-07-20 08:00] VITALS: O2SAT 96
[2017-07-20] MEDS: ENALAPRILAT IV 1.25 MG in DEXTROSE 5% 25ML 25 ML IV SCH (08:04)
[2017-07-20] MEDS: ENOXAPARIN 40 MG/0.4 ML SYR SQ SCH (08:05)
[2017-07-20] MEDS: CHECK FENTANYL PATCH PLACEMENT SCH ×3 (08:10→23:35)
[2017-07-20] MEDS: HYDROmorphone INJ 0.5 MG/0.5 ML SYR IV PRN (09:03)
--- NOTE | 2017-07-20 10:44 | NUR ---
Talked with [facility] today. 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 They will not do IV Vasotec and they will not do a LEATHER STRIPPING MACHINE OPERATOR. Will talk with attending about adjusting pain medications. Talked with nursing. The Roxanol is not helping control pain so they are using IV Dilaudid. Talked with attending about the above. May need to increase the concentration on the Roxanol and increase the Fentanyl patch. Attending to talk with Palliative Care. Will follow for discharge planning.
--- NOTE | 2017-07-20 11:03 | Palliative Care Progress Note ---
Palliative Care Progress Note Date of Service Jul 20, 2017. Subjective Pt evaluation today including: physical exam, chart review, conversation w/ test consultant, review of inpatient medication list Pain: Pt appears comfortable on exam PO Intake: poor Voiding: collier catheter in place Pt opened her eyes to voice, did not attempt to speak , lax facial musculature. Pt calm during exam, not fearful with touching RLE Review of Systems Unable to obtain - pt non verbal and did not nod yes or no to questions Objective Vital Signs Date Time Temp Pulse Resp B/P (MAP) Pulse Ox O2 Delivery O2 Flow Rate FiO2 07/20/17 08:00 96 Room Air 07/20/17 07:17 36.9 98 22 125/80 (95) 90 Room Air 07/20/17 00:00 Room Air 07/19/17 23:24 36.8 76 18 132/66 (88) 90 Room Air 07/19/17 19:16 37.1 103 18 152/84 (106) 93 Room Air 07/19/17 16:01 94 Room Air 07/19/17 15:47 36.9 98 18 139/96 (110) 94 Room Air 07/19/17 11:23 36.9 99 16 128/89 (102) 98 Physical Exam General Appearance: no apparent distress Eyes: EOMI ENT: + pertinent finding (FRANKLYN, pt is ALUTIIQ) Respiratory/Chest: lungs clear, no respiratory distress Cardiovascular: + irregularly irregular, + pertinent finding (holosystoic murmur) Abdomen: normal bowel sounds, + pertinent finding (no grimace with palpation) Extremities: + pertinent finding (RLE with external rotation, LLE also turned outward) Neurologic/Psychiatric: + pertinent finding (facial droop, likely due to lax facial muscles) Skin: + pertinent finding (LE cool to touch to mid hatfield, no mottling) Laboratory Results Last 24 Hours Test 07/19/17 11:11 07/19/17 16:27 07/19/17 19:46 07/20/17 07:28 Bedside Glucose 106 mg/dl 115 mg/dl 109 mg/dl 116 mg/dl Assessment and Plan (1) Pain due to fracture Status: Acute Assessment & Plan: Reviewed pain med requirements prior to Fentanyl patch and after - she was requiring 45 to 50 mg morphine equivalent per 24 hours prior to patch and 30 mg per 24 hours after patch. A 25 mcg patch should give 50 mg morphine equivalent /day - it also requires sub Q fat for absorption. I don't think the Fentanyl patch is adding much to her pain control, but feel free to continue it. I would recommend increasing her Roxanol to 10 mg SL and schedule Q 6 or Q 8 hours with a Q 2 hour prn dose. He daily requirements are between 30 and 50 mg of oral morphine /24 hours - her requirements may decrease as her UOP decreases. (2) Hip fracture, right Status: Acute Assessment & Plan: pain control , pt not a surgical candidate (3) Arrhythmia Status: Acute Assessment & Plan: Rate 76 to 103 off cardiac meds (4) Altered consciousness Status: Acute Assessment & Plan: Due to pain meds and approaching end of life. Would discontinue PO meds except for SL Roxanol and Ativan that can also be given SL. Would observe pt for 24-48 hours after pain meds changed to assure control on SL meds. Total time 35 min with > 50% of time spent at bedside and on unit discussing prognosis and POC with granddaughter Palliative Performance Scale: 10 % Continued [facility] stay due to: inadequate oral pain control, multiple IV medications needed, home environment unsafe for pt Discharge planning: uncertain
[2017-07-20] MEDS ORDERED: OXYCODONE HCL SOLN 5 MG/5 ML UDC PO PRN (12:30)
[2017-07-20] MEDS: FENTANYL PATCH REMOVE & WASTE SCH (13:52)
[2017-07-20] MEDS: FENTANYL 25 MCG/HR TDSY TD SCH (13:57)
[2017-07-20] MEDS: MoRPHine SULFATE 10 MG/0.5 ML UDP PO SCH ×2 (13:59→21:55)
[2017-07-20 16:00] VITALS: O2SAT 96
--- NOTE | 2017-07-20 16:03 | Progress Note ---
Internal Med Progress Note Date of Service: Jul 20, 2017. Provider Documentation: SUBJECTIVE: Patient seen and examined at bedside. Sleeping. Not in pain OBJECTIVE: General- Sleeping. Not in pain Lungs- breathing on room air, anterior auscultation - no wheezing Heart- Harsh blowing, 4/6 mid to late systolic ejection murmur greatest at the right sternal border second intercostal space Abdomen- bowel sounds present Extremities- no edema ASSESSMENT & PLAN: 87 year old female patient with displaced intertrochanteric fracture of the right femur Patient has been in the hospital for pain control and comfort after patient was deemed to be high cardiovascular risk (severe aortic stenosis) for orthopedic intervention Palliative service was re-consulted on 07/20/17 on pain medications As per Dr. Barber: can continue Fetanyl patch, have increased Roxanol to 10 ml [id number], have also ordered Roxanol 5mg q2 hour prn for pain "Due to pain meds and approaching end of life. Would discontinue PO meds except for SL Roxanol and Ativan that can also be given SL. Would observe pt for 24-48 hours after pain meds changed to assure control on SL meds." Bowel regimen have been on active medication list but patient may not be taking oral medications consistently Diabetes: Insulin DVT prophylaxis: Lovenox Code Status Level 5, DNR Vital Signs: Date Time Temp Pulse Resp B/P (MAP) Pulse Ox O2 Delivery O2 Flow Rate FiO2 07/20/17 16:08 36.8 85 14 125/76 (92) 96 07/20/17 08:00 96 Room Air 07/20/17 07:17 36.9 98 22 125/80 (95) 90 Room Air 07/20/17 00:00 Room Air 07/19/17 23:24 36.8 76 18 132/66 (88) 90 Room Air 07/19/17 19:16 37.1 103 18 152/84 (106) 93 Room Air Lab Results: Results Past 24 Hours Test 07/19/17 16:27 07/19/17 19:46 07/20/17 07:28 07/20/17 11:14 Range/Units Bedside Glucose 115 109 116 103 70-90 mg/dl
[2017-07-20 16:08] VITALS: BP 125/76; PULSE 85; TEMP 36.8; O2SAT 96
--- NOTE | 2017-07-20 21:04 | NUR ---
A/ID: Pt admitted d/t Arrhythmia, Right Hip fracture, open her eyes to voice, non verbal, comfortably resting, given Roxanol routinely, SL at L FA, lungs are clear and diminished a RA, hypoactive BS, soft, non distended, Weak PP, BLE trace edema, noted fentanyl patch on Left upper arm, with May concentrated elias urine, pillow underneath affected leg, repositioned, keep comfortable,mouth care rendered as needed, VSS, Palliative consulted, CM following, D/c uncertain at this time, Will continue monitoring.
[2017-07-20 22:53] VITALS: BP 101/71; PULSE 84; TEMP 36.7; O2SAT 96
[2017-07-21] MEDS: MoRPHine SULFATE 5 MG/0.25 ML UDP PO PRN ×4 (03:18→22:27)
[2017-07-21] MEDS: MoRPHine SULFATE 10 MG/0.5 ML UDP PO SCH ×3 (05:53→21:04)
[2017-07-21 07:33] VITALS: BP 134/80; PULSE 96; TEMP 36.5; O2SAT 94
[2017-07-21] MEDS: DOCUSATE SODIUM/SENNA 50/8.6MG TAB PO SCH (07:43)
[2017-07-21] MEDS: ENOXAPARIN 40 MG/0.4 ML SYR SQ SCH (07:44)
[2017-07-21] MEDS: INSULIN GLARGINE SOLOSTAR 100 UNITS/ML 3 ML PEN SC SCH (07:44)
[2017-07-21] MEDS: INSULIN ASPART 100 UNITS/ML 3 ML PEN SC SCH ×2 (07:44→12:47)
[2017-07-21] MEDS: CHECK FENTANYL PATCH PLACEMENT SCH ×3 (07:49→23:48)
--- NOTE | 2017-07-21 10:47 | NUR ---
Pt seen for followup, refer to linked note for full assessment and recommendations. Addendum: 07/21/17 at [address] Amended: Links added.
--- NOTE | 2017-07-21 11:15 | Palliative Care Progress Note ---
Palliative Care Progress Note Date of Service Jul 21, 2017. Subjective Pt evaluation today including: conversation w/ patient, conversation w/ family , physical exam, chart review, conversation w/ sales development consultant (Dr. Boogie) Pain: patient unable to answer but currently has no s/s pain PO Intake: none Voiding: collier catheter in place (oliguric) -Over weekend, patient's IVF were discontinued. -I received a call from patient's son, Carlos Manuel, yesterday. The family decided to make patient comfort measures only. -Her regular PO medications were stopped since patient is unable to really take anything PO. -Her pain meds were changed to Roxanol. She has received a total of three doses of 10mg PO, and three doses of 5mg PO (total 45mg). She is now better controlled on the Roxanol with no agitation or grimacing, but is requiring frequent dosing and frequent nursing assessment. Review of Systems unable to obtain ROS due to altered mental status Objective Vital Signs Date Time Temp Pulse Resp B/P (MAP) Pulse Ox O2 Delivery O2 Flow Rate FiO2 07/21/17 08:00 Room Air 07/21/17 07:33 36.5 96 16 134/80 (98) 94 Room Air 07/21/17 00:00 Room Air 07/20/17 22:53 36.7 84 16 101/71 (81) 96 Room Air 07/20/17 16:08 36.8 85 14 125/76 (92) 96 07/20/17 16:00 96 Room Air Physical Exam General Appearance: no apparent distress ENT: hearing grossly normal Neck: supple, no JVD Respiratory/Chest: lungs clear, no respiratory distress, no accessory muscle use Cardiovascular: no edema, + systolic murmur, + irregularly irregular, + normal peripheral pulses Abdomen: normal bowel sounds, soft Neurologic/Psychiatric: + pertinent finding (awakens to voice, occasionally answers questions) Skin: normal color Assessment and Plan Problem list: Pain, right hip Altered mental status- delirium superimposed on dementia Moderate to severe dementia at baseline per the family's reports S/P fall and right hip fracture Severe aortic stenosis, moderate mitral stenosis 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 -IVF discontinued over weekend. Patient has not eaten to drank anything in days. -Pills have been discontinued as patient is not able to take them. No feeding tube per patient's living will per the family. Abx also discontinued. -Fentanyl patch was increased to 25mcg/hr. -Roxanol 5mg PO Q2h PRN pain or SOB. -Also has Roxanol 10mg PO Q8h PRN. The frequency could be increased to Q4h PRN if needed. -Family does not think they can take patient home on hospice. Uncertain if they are willing to allow her to go to [place]. Patient may be eligible for [facility] hospice here as well as she is requiring frequent nursing assessment and pain medication. Case management following as well. Thank you again for consulting me on this patient. I will follow as needed. Palliative Performance Scale: 10 % Discharge planning: uncertain
[2017-07-21 15:34] VITALS: BP 117/80; PULSE 104; TEMP 36.5; O2SAT 97
--- NOTE | 2017-07-21 15:36 | Progress Note ---
Internal Med Progress Note Date of Service: Jul 21, 2017. Provider Documentation: SUBJECTIVE: Patient seen and examined at bedside. Sleeping. Not in pain. Opens eyes when spoken to but then goes back to sleep OBJECTIVE: General- Sleeping. Not in pain Lungs- breathing on room air, anterior auscultation - no wheezing Heart- Harsh blowing, 4/6 mid to late systolic ejection murmur greatest at the right sternal border second intercostal space Abdomen- bowel sounds present Extremities- no edema ASSESSMENT & PLAN: 87 year old female patient with displaced intertrochanteric fracture of the right femur Patient has been in the hospital for pain control and comfort after patient was deemed to be high cardiovascular risk (severe aortic stenosis) for orthopedic intervention Palliative service was re-consulted on 07/20/17 on pain medications As per Dr. Barber: can continue Fetanyl patch, have increased Roxanol to 10 ml [id number], have also ordered Roxanol 5mg q2 hour prn for pain "Due to pain meds and approaching end of life. Would discontinue PO meds except for SL Roxanol and Ativan that can also be given SL. Would observe pt for 24-48 hours after pain meds changed to assure control on SL meds." Had family meeting and with palliative care service on 07/21/17 and confirmed that patient is comfort care status Disposition: "Family does not think they can take patient home on hospice. Uncertain if they are willing to allow her to go to [place]. Patient may be eligible for [facility] hospice here as well as she is requiring frequent nursing assessment and pain medication. Case management following as well." Code Status Level 5, DNR Vital Signs: Date Time Temp Pulse Resp B/P (MAP) Pulse Ox O2 Delivery O2 Flow Rate FiO2 07/21/17 15:34 36.5 104 16 117/80 (92) 97 Room Air 07/21/17 08:00 Room Air 07/21/17 07:33 36.5 96 16 134/80 (98) 94 Room Air 07/21/17 00:00 Room Air 07/20/17 22:53 36.7 84 16 101/71 (81) 96 Room Air 07/20/17 16:08 36.8 85 14 125/76 (92) 96 07/20/17 16:00 96 Room Air Lab Results: Results Past 24 Hours Test 07/20/17 16:54 07/20/17 19:21 07/21/17 07:44 07/21/17 11:41 Range/Units Bedside Glucose 108 101 98 95 70-90 mg/dl
[2017-07-21 16:00] VITALS: O2SAT 97
--- NOTE | 2017-07-21 21:09 | NUR ---
A: Pt admitted d/t arrhythmia, Right hip fracture, open her eyes to voice and touch, on comfort measures, mostly comfortable sleeping throughout the shift, with pain on repositioned- medicated routine and prn, lungs are clear and diminished, +hypoactive BS, soft,non distended abdomen,with May draining with little amount of concentrated elias urine, waffles boots, repositioned, keep comfortable, SS following, Will continue to provide comfort measures.
[2017-07-22] MEDS: MoRPHine SULFATE 10 MG/0.5 ML UDP PO SCH ×3 (05:49→21:51)
[2017-07-22] MEDS: CHECK FENTANYL PATCH PLACEMENT SCH ×2 (09:34→15:14)
[2017-07-22] MEDS: MoRPHine SULFATE 5 MG/0.25 ML UDP PO PRN ×3 (10:10→19:53)
[2017-07-22] MEDS: LORAZEPAM 1 MG TAB PO PRN (11:50)
[2017-07-22 16:01] VITALS: O2SAT 97
--- NOTE | 2017-07-22 16:13 | NUR ---
Talked with Palliative Care today. She talked with patient's family. Patient is declining and so family wants her to have comfort care here. Will follow for support to family as needed.
--- NOTE | 2017-07-22 17:51 | Progress Note ---
Internal Med Progress Note Date of Service: Jul 22, 2017. Provider Documentation: SUBJECTIVE: Patient seen and examined at bedside. She has been able to open her eyes and speak briefly and not in acute pain OBJECTIVE: General- no acute distress Lungs- breathing on room air, anterior auscultation - no wheezing Heart- Harsh blowing, 4/6 mid to late systolic ejection murmur greatest at the right sternal border second intercostal space Abdomen- bowel sounds present Extremities- no edema ASSESSMENT & PLAN: 87 year old female patient with displaced intertrochanteric fracture of the right femur Patient has been in the hospital for pain control and comfort after patient was deemed to be high cardiovascular risk (severe aortic stenosis) for orthopedic intervention Palliative service was re-consulted on 07/20/17 on pain medications As per Dr. Barber: can continue Fetanyl patch, have increased Roxanol to 10 ml [id number], have also ordered Roxanol 5mg q2 hour prn for pain "Due to pain meds and approaching end of life. Would discontinue PO meds except for SL Roxanol and Ativan that can also be given SL. Would observe pt for 24-48 hours after pain meds changed to assure control on SL meds." Had family meeting and with palliative care service on 07/21/17 and confirmed that patient is comfort care status Disposition: "Family does not think they can take patient home on hospice. Uncertain if they are willing to allow her to go to [place]. Patient may be eligible for [facility] hospice here as well as she is requiring frequent nursing assessment and pain medication. Case management following as well." Code Status Level 5, DNR Vital Signs: Date Time Temp Pulse Resp B/P (MAP) Pulse Ox O2 Delivery O2 Flow Rate FiO2 07/22/17 16:01 97 Room Air 07/22/17 09:15 Room Air 07/22/17 00:00 Room Air
--- NOTE | 2017-07-22 21:00 | NUR ---
A/ID: Pt is comfort measures, open her eyes to voice and touch, resting comfortably mostly on shift, pain when repositioned- medicated with prn and routine pain roxanol, Lungs are clear and diminished, hypo BS, soft, non distended abdomen, with collier draining with little amount with concentrated elias urine, waffle boots, mouth care as needed, Will continue to provide comfort care.
[2017-07-23] MEDS: CHECK FENTANYL PATCH PLACEMENT SCH ×3 (00:48→16:00)
[2017-07-23] MEDS: MoRPHine SULFATE 5 MG/0.25 ML UDP PO PRN ×2 (03:51→10:46)
[2017-07-23] MEDS: MoRPHine SULFATE 10 MG/0.5 ML UDP PO SCH ×2 (06:09→13:35)
[2017-07-23] MEDS: HYDROmorphone INJ 0.5 MG/0.5 ML SYR IV PRN ×2 (07:44→18:24)
[2017-07-23 08:00] VITALS: O2SAT 97
--- NOTE | 2017-07-23 08:00 | NUR ---
A: pt is comfort measures only. she is sleeping but awakens to tactile stimulation. room air. pt is mouth breather and does require frequent mouth care. respirations even and unlabored. saline lock intact intact and flushing. pt moans w/ turning and repositioning. she is being medicated for pain as per SEP. fentanyl patch intact to DELMI. pt has scattered bruising. red areas present to b/l arms and abdomen. multiple open carlos eduardo to sacrum. barrier cream applied. collier catheter intact an draining concentrated elias. sacral and heel foams intact. will continue to monitor .
[2017-07-23] MEDS: FENTANYL 25 MCG/HR TDSY TD SCH (13:35)
[2017-07-23] MEDS: FENTANYL PATCH REMOVE & WASTE SCH (13:41)
--- NOTE | 2017-07-23 15:13 | NUR ---
call to Dr Boogie at this time to notify that pt ears are suddenly swollen and red. pt has had rash over trunk and arms. received verbal order. is to come see pt.
[2017-07-23] MEDS ORDERED: NURSING VERBAL MED ORDER ONE (15:15)
[2017-07-23] MEDS ORDERED: DiphenhydrAMINE HCL 50 MG/ML VIAL IV ONE (15:30)
--- NOTE | 2017-07-23 15:47 | Progress Note ---
Internal Med Progress Note Date of Service: Jul 23, 2017. Provider Documentation: SUBJECTIVE: Patient seen and examined at bedside. She has been able to open her eyes and speak briefly and not in acute pain. OBJECTIVE: General- no acute distress Lungs- breathing on room air, anterior auscultation - no wheezing Heart- Harsh blowing, 4/6 mid to late systolic ejection murmur greatest at the right sternal border second intercostal space Abdomen- bowel sounds present Extremities- no edema Skin: redness and warmth of upper extremities and bilateral ears ASSESSMENT & PLAN: 87 year old female patient with displaced intertrochanteric fracture of the right femur Patient has been in the hospital for pain control and comfort after patient was deemed to be high cardiovascular risk (severe aortic stenosis) for orthopedic intervention Palliative service was re-consulted on 07/20/17 on pain medications As per Dr. Barber: can continue Fetanyl patch, have increased Roxanol to 10 ml [id number], have also ordered Roxanol 5mg q2 hour prn for pain "Due to pain meds and approaching end of life. Would discontinue PO meds except for SL Roxanol and Ativan that can also be given SL. Would observe pt for 24-48 hours after pain meds changed to assure control on SL meds." Had family meeting and with palliative care service on 07/21/17 and confirmed that patient is comfort care status Disposition: "Family does not think they can take patient home on hospice. Uncertain if they are willing to allow her to go to [place]. Patient may be eligible for [facility] hospice here as well as she is requiring frequent nursing assessment and pain medication. Case management following as well." 07/23/17 Have noted more increased redness and erythema of upper extremities and bilateral ears. Some swelling of the ears. Have discussed with patient's family (her sons)about workup some as drawing labs and rule out infectious causes but family has declined and opting for IV Benadryl only to treat the rash. They would allow for IV steroids if Benadryl is not successful in improving rash/swelling Code Status Level 5, DNR Vital Signs: Date Time Temp Pulse Resp B/P (MAP) Pulse Ox O2 Delivery O2 Flow Rate FiO2 07/23/17 08:00 97 Room Air 07/23/17 00:00 Room Air 07/22/17 16:01 97 Room Air
[2017-07-23 16:00] VITALS: O2SAT 97
--- NOTE | 2017-07-23 16:00 | NUR ---
Talked with Palliative Care today. Patient's family are open to [facility]. Talked with patient's family today about inpatient hospice services. Family agreed to inpatient hospice. Discussed hospice agencies contracted with [facility] for inpatient hospice and the family selected [facility]. Referral to [facility] for inpatient hospice. SonGoran, can be reached by hospice at [phone] (H) or at [phone] (Cell). Talked with Nikky from [facility]. She will arrange for an evaluation visit with the son, Goran. Will follow for discharge planning.
--- NOTE | 2017-07-23 16:01 | NUR ---
A: pt assessment unchanged. she is comfort care pt. room air. resps unlabored at rest. pt sleeping most of shift . she awakens to verbal stimulation . pt moans and cries out in pain only when being turned/repositioned. she is being medicated as per mar scheduled and PRN Roxanol and is receiving relief. mouth care PRN. pt continues to have red rash over trunk and arms. skin is warm. as noted in previous note pt also now has swollen, red ears. she is being treated w/ scheduled benadryl. family at bedside. plan is for pt to be [facility] and remain here. will continue care.
[2017-07-23] MEDS ORDERED: DiphenhydrAMINE HCL 50 MG/ML VIAL IV SCH (18:00)
--- NOTE | 2017-07-23 19:43 | Discharge Summary ---
Discharge Summary Date of Service Jul 23, 2017. Discharge Summary Admission Date: Jul 14, 2017 at 02:15 Discharge Date: Jul 23, 2017 Principal Diagnosis: displaced intertrochanteric fracture of the right femur, comfort care, erythema of upper extremities, swelling of bilateral ears Admission Information HPI (per Admitting provider): 87 YO female followed by Dr. Lorenzo for Family Medicine. History of paroxysmal atrial fibrillation, DM type 2, dementia, and other problems noted below. Suffered recent stroke and was cared for at [facility]. 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 Main deficit from stroke was ongoing diplopia. Transferred to [facility] 07/11 for inpatient rehab. Fell out of bed tonight and experienced right hip pain. Patient does not recall the circumstances of the fall. She received IV hydromorphone in the ED with some relief. . Physical Exam (per Admitting): General Appearance: + moderate distress Head: + pertinent finding (contusion right temporal parietal scalp) Eyes: PERRL, sclerae normal, + pertinent finding (conjunctivae cledar) ENT: hearing grossly normal, + pertinent finding (edentulous; oral mucosa dry) Neck: supple, no adenopathy, thyroid normal, trachea midline Respiratory/Chest: lungs clear, no respiratory distress, no accessory muscle use Cardiovascular: no JVD, + abnormal peripheral pulses (diminished pedal pulses), + pertinent finding (irregular, IV/ systolic murmur heard thoughout precordium, no gallop appreciated) Abdomen/GI: normal bowel sounds, non tender, soft, no organomegaly Extremities/Musculoskelatal: no calf tenderness, normal capillary refill, + pertinent finding (right leg shortened and externally rotated) Neurologic/Psych: alert, + disoriented, + pertinent finding (pupils reactive , right exotropia, motor strength upper extremities 4.5/5; assessment of lower extremity strength limited; plantar reflexes downgoing) Skin: normal color, warm/dry, no rash Lymphatic: no adenopathy (cervical) Hospital Course 87 year old female patient with displaced intertrochanteric fracture of the right femur Patient has been in the hospital for pain control and comfort after patient was deemed to be high cardiovascular risk (severe aortic stenosis) for orthopedic intervention Palliative service was re-consulted on 07/20/17 on pain medications As per Dr. Barber: can continue Fetanyl patch, have increased Roxanol to 10 ml [id number], have also ordered Roxanol 5mg q2 hour prn for pain "Due to pain meds and approaching end of life. Would discontinue PO meds except for SL Roxanol and Ativan that can also be given SL. Would observe pt for 24-48 hours after pain meds changed to assure control on SL meds." Had family meeting and with palliative care service on 07/21/17 and confirmed that patient is comfort care status Disposition: "Family does not think they can take patient home on hospice. Uncertain if they are willing to allow her to go to [place]. Patient may be eligible for [facility] hospice here as well as she is requiring frequent nursing assessment and pain medication. Case management following as well." 07/23/17 Have noted more increased redness and erythema of upper extremities and bilateral ears. Some swelling of the ears. Have discussed with patient's family (her sons)about workup some as drawing labs and rule out infectious causes but family has declined and opting for IV Benadryl only to treat the rash. They would allow for IV steroids if Benadryl is not successful in improving rash/swelling Code Status Level 5, DNR Total time spent on discharge = This includes examination of the patient, discharge planning, medication reconciliation, and communication with other providers. Discharge Instructions Patient is to be discharged from inpatient status for comfort care and then to be re-admitted as hospice care
== END 2017-07-23 19:50 | disposition hospice, inpatient (51) | DRG 536 ==
LOC: EDBD 23:18 → C.EDB 23:21 → C.2E 07-14 02:15 → ENRESERV 07-14 02:32 → C.4E 07-15 15:16
PROVIDERS: ADMIT Hospitalist; ATTEND Hospitalist
DX: S72.141A Displaced intertrochanteric fracture of right femur, initial encounter for closed fracture (principal); N39.0 Urinary tract infection, site not specified; B95.5 Unspecified streptococcus as the cause of diseases classified elsewhere; Z51.5 Encounter for palliative care; L53.9 Erythematous condition, unspecified; H93.8X3 Other specified disorders of ear, bilateral; G30.9 Alzheimer's disease, unspecified; F02.80 Dementia in other diseases classified elsewhere, unspecified severity, without behavioral disturbance, psychotic disturbance, mood disturbance, and anxiety; S00.03XA Contusion of scalp, initial encounter; I69.398 Other sequelae of cerebral infarction; H53.2 Diplopia; I35.0 Nonrheumatic aortic (valve) stenosis; I48.0 Paroxysmal atrial fibrillation; I11.9 Hypertensive heart disease without heart failure; E11.40 Type 2 diabetes mellitus with diabetic neuropathy, unspecified; E78.5 Hyperlipidemia, unspecified; F32.9 Major depressive disorder, single episode, unspecified; Z79.899 Other long term (current) drug therapy; Z79.01 Long term (current) use of anticoagulants; Z79.02 Long term (current) use of antithrombotics/antiplatelets; Z79.82 Long term (current) use of aspirin; Z66 Do not resuscitate; Z83.3 Family history of diabetes mellitus; Z82.49 Family history of ischemic heart disease and other diseases of the circulatory system; Z80.0 Family history of malignant neoplasm of digestive organs; Z80.7 Family history of other malignant neoplasms of lymphoid, hematopoietic and related tissues; W06.XXXA Fall from bed, initial encounter; Y92.230 Patient room in hospital as the place of occurrence of the external cause; Y99.8 Other external cause status

== ENCOUNTER 2017-07-23 19:55 | Inpatient (IN) | payer OTHER ==
[~2017-07-23] VITALS: Ht 152.4 cm; Wt 76.6 kg
[~2017-07-23 19:55] MED LIST changes: +AMLO2.5T PO; +ASPI81TA28 PO; +ATOR-26 PO; +CITA20TA4 PO; +CLOP1TAB15 PO; +ENOX40IN SQ; +OXYB1TAB31 PO; +POTA20TA13 PO; +SENN-65 PO
[2017-07-23] MEDS ORDERED: LORAZEPAM 1 MG TAB PO PRN (20:15)
[2017-07-23] MEDS ORDERED: ONDANSETRON INJ 2 MG/ML 2 ML VIAL IV PRN (20:15)
[2017-07-23] MEDS ORDERED: SCOPOLAMINE 1.5 MG TDSY TD PRN (20:30)
--- NOTE | 2017-07-23 21:00 | NUR ---
A: Pt transferred to inpatient hospice status, MD aware, new orders obtained. [facility] at bedside.
[2017-07-23] MEDS: MoRPHine SULFATE 10 MG/0.5 ML UDP PO SCH (21:09)
--- NOTE | 2017-07-23 22:50 | NUR ---
ID: Pt is comfort measures. Awakens to verbal/tactile stimulation. Medicated as per eMAR. Appears to be resting comfortably, resp unlabored on RA. May patent/draining elias colored urine. Mouth care PRN. Will continue to provide comfort care
[2017-07-23 23:16] VITALS: Ht 152.4 cm; Wt 76.6 kg
[2017-07-23] MEDS: HYDROmorphone INJ 0.5 MG/0.5 ML SYR IV PRN (23:43)
[2017-07-23] MEDS: DiphenhydrAMINE HCL 50 MG/ML VIAL IV SCH (23:47)
[2017-07-23] MEDS: CHECK FENTANYL PATCH PLACEMENT SCH (23:49)
[2017-07-23] MEDS: CHECK SCOPOLAMINE PATCH PLACEMENT SCH (23:49)
[2017-07-24] MEDS: MoRPHine SULFATE 5 MG/0.25 ML UDP PO PRN (00:29)
[2017-07-24] MEDS ORDERED: DiphenhydrAMINE INJ 12.5 MG in SYRINGE 0 ML IV SCH (00:30)
[2017-07-24] MEDS ORDERED: LORAZEPAM INJ 0.5 MG in SYRINGE 0.75 ML IV PRN (02:00)
[2017-07-24] MEDS ORDERED: LORAZEPAM 2 MG/ML 1 ML VIAL IV PRN (02:00)
[2017-07-24] MEDS: HYDROmorphone INJ 0.5 MG/0.5 ML SYR IV PRN ×5 (03:59→23:39)
[2017-07-24] MEDS: DiphenhydrAMINE HCL 50 MG/ML VIAL IV SCH ×4 (06:18→23:38)
[2017-07-24] MEDS: MoRPHine SULFATE 10 MG/0.5 ML UDP PO SCH ×3 (06:18→22:00)
[2017-07-24] MEDS: CHECK SCOPOLAMINE PATCH PLACEMENT SCH ×3 (07:36→23:39)
[2017-07-24] MEDS: CHECK FENTANYL PATCH PLACEMENT SCH ×3 (07:36→23:39)
--- NOTE | 2017-07-24 09:06 | NUR ---
a: patient moaning and restless this morning. medicated as ordered. patient now resting more comfortably. remains on comfort measures, inpatient hospice. bed alarm on. call walsh in reach.
--- NOTE | 2017-07-24 10:23 | NUR ---
RD received an RN Adm assessment trigger for chewing/swallowing difficulty. EMR reviewed. Pt currently NPO, on Hospice Care. No further RD intervention indicated.
--- NOTE | 2017-07-24 16:30 | Progress Note ---
Internal Med Progress Note Date of Service: Jul 24, 2017. Provider Documentation: SUBJECTIVE: Patient seen and examined at bedside. She is mouth breathing. Not speaking. Not in pain OBJECTIVE: General- mouth breathing. Not speaking. Not in pain Lungs- breathing on room air, anterior auscultation - no wheezing Heart- Harsh blowing, 4/6 mid to late systolic ejection murmur greatest at the right sternal border second intercostal space Abdomen- bowel sounds present Extremities- no edema Skin: redness and warmth of upper extremities and bilateral ears that is improving compared to 07/23/17 ASSESSMENT & PLAN: 87 year old female patient with displaced intertrochanteric fracture of the right femur Patient has been in the hospital for pain control and comfort after patient was deemed to be high cardiovascular risk (severe aortic stenosis) for orthopedic intervention Had family meeting and with palliative care service on 07/21/17 and confirmed that patient is comfort care status 07/23/17 Have noted more increased redness and erythema of upper extremities and bilateral ears. Some swelling of the ears. Have discussed with patient's family (her sons)about workup some as drawing labs and rule out infectious causes but family has declined and opting for IV Benadryl only to treat the rash. They would allow for IV steroids if Benadryl is not successful in improving rash/swelling 07/24/17 Patient's is inpatient hospice care Pain control with Roxanol, Fentanyl Patch, Ativan , Sopalamine patch Rash and erythema improving with Benadryl, Continue Benadryl Code Status Level 5 DNR/DNI Vital Signs: Date Time Temp Pulse Resp B/P (MAP) Pulse Ox O2 Delivery O2 Flow Rate FiO2 07/24/17 16:00 Room Air 07/24/17 08:00 Room Air 07/24/17 00:51 Room Air 07/23/17 23:16 Room Air 07/23/17 20:50 Room Air
--- NOTE | 2017-07-24 20:00 | NUR ---
ID: Pt inpatient hospice care. Family at bedside. Pt appears to be resting comfortably at this time, family agrees. Comfort measures only. May intact and patent, draining a minimal amount of elias urine. Pt very painful with repo, PRN per family wishes. RFA new IV site placed. NPO status. Mouth care provided PRN. No VS or labs at this time. Bed alarm in place for pt safety. Will continue to monitor for s/s of distress.
[2017-07-25] MEDS: HYDROmorphone INJ 0.5 MG/0.5 ML SYR IV PRN ×2 (04:13→09:09)
[2017-07-25] MEDS: MoRPHine SULFATE 10 MG/0.5 ML UDP PO SCH ×2 (06:07→13:45)
[2017-07-25] MEDS: DiphenhydrAMINE HCL 50 MG/ML VIAL IV SCH (06:07)
[2017-07-25] MEDS: MoRPHine SULFATE 5 MG/0.25 ML UDP PO PRN ×2 (07:45→10:14)
[2017-07-25] MEDS: CHECK SCOPOLAMINE PATCH PLACEMENT SCH ×2 (07:46→16:00)
[2017-07-25] MEDS: CHECK FENTANYL PATCH PLACEMENT SCH ×2 (07:46→16:00)
[2017-07-25] MEDS ORDERED: MoRPHine SULFATE 2 MG/ML CARP IV STA (10:46)
[2017-07-25] MEDS ORDERED: MoRPHine SULFATE 2 MG/ML CARP ONE ×2 (10:53→13:01)
[2017-07-25] MEDS ORDERED: MoRPHine SULFATE 2 MG/ML CARP IV PRN (11:45)
[2017-07-25] MEDS ORDERED: MoRPHine SULFATE 2 MG/ML CARP IV ONE (13:30)
[2017-07-25] MEDS ORDERED: MoRPHine SULF/NSS 250MG/250ML 250 ML IV PRN (13:30)
[2017-07-25] MEDS ORDERED: NURSING DECISION MEDICATION ORDER SCH ×2 (15:00→16:15)
--- NOTE | 2017-07-25 17:32 | NUR ---
a: patient ceased to breathe at 1655, no resp noted, no heart rate auscultated, pupils fixed and dilated. family at bedside. morphine drip stopped. made aware. pronounced at [address] Boogie.
--- NOTE | 2017-07-25 17:38 | Progress Note ---
Progress Note Date of Service Jul 25, 2017. Progress Note Note Medical Doctor was called by nurse that patient may have . Bedside exam performed Pupils nonreactive to light, dilated No audible heart sounds No audible lung sounds No pulses palpable Patient pronounced . Time of 5:05 PM on 07/25/17
--- NOTE | 2017-07-25 17:48 | Discharge Summary ---
Discharge Summary Date of Service Jul 25, 2017. Discharge Summary Admission Date: Jul 23, 2017 at 19:55 Discharge Disposition: Principal Diagnosis: mechanical fall, displaced intertrochanteric fracture of the right femur, aortic stenosis, poor oral intake and dehydration, comfort care, inpatient hospice Secondary Diagnoses/Problems: erythema of skin, ear swelling, Diabetes Admission Information HPI (per Admitting provider): History of Present Illness Source: patient, family, clinic records, hospital records 87 YO female followed by Dr. Lorenzo for Family Medicine. History of paroxysmal atrial fibrillation, DM type 2, dementia, and other problems noted below. Suffered recent stroke and was cared for at [facility]. 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 Main deficit from stroke was ongoing diplopia. Transferred to [facility] 07/11 for inpatient rehab. Fell out of bed tonight and experienced right hip pain. Patient does not recall the circumstances of the fall. She received IV hydromorphone in the ED with some relief. Physical Exam (per Admitting): General Appearance: + moderate distress Head: + pertinent finding (contusion right temporal parietal scalp) Eyes: PERRL, sclerae normal, + pertinent finding (conjunctivae cledar) ENT: hearing grossly normal, + pertinent finding (edentulous; oral mucosa dry) Neck: supple, no adenopathy, thyroid normal, trachea midline Respiratory/Chest: lungs clear, no respiratory distress, no accessory muscle use Cardiovascular: no JVD, + abnormal peripheral pulses (diminished pedal pulses) , + pertinent finding (irregular, IV/ systolic murmur heard thoughout precordium, no gallop appreciated) Abdomen/GI: normal bowel sounds, non tender, soft, no organomegaly Extremities/Musculoskelatal: no calf tenderness, normal capillary refill, + pertinent finding (right leg shortened and externally rotated) Neurologic/Psych: alert, + disoriented, + pertinent finding (pupils reactive, right exotropia, motor strength upper extremities 4.5/5; assessment of lower extremity strength limited; plantar reflexes downgoing) Skin: normal color, warm/dry, no rash Lymphatic: no adenopathy (cervical) Hospital Course Patient presented to [facility] between 07/13/17 to 07/14/17 for hospital admission from the emergency room after arrived from [facility] for mechanical fall and found to have displaced intertrochanteric fracture of the right femur Patient had been in the hospital medical [facility] since 07/14/17 for pain control after patient was deemed to be high cardiovascular risk (severe aortic stenosis ) for orthopedic intervention and patient's family did not opt for active intervention and opted for comfort care and was placed on inpatient hospice care and patient's code status was do not resuscitate and do not intubate During this hospital stay patient was treated with pain medications and antihistamine Patient . Time of is 5:05 PM 07/25/17 Total time spent on discharge = 60 minutes This includes examination of the patient, discharge planning, medication reconciliation, and communication with other providers. Discharge Instructions Patient . Time of is 5:05 PM 07/25/17
[2017-07-26] MEDS ORDERED: FENTANYL PATCH REMOVE & WASTE SCH (08:59)
[2017-07-26] MEDS ORDERED: FENTANYL 25 MCG/HR TDSY TD SCH (09:00)
--- NOTE | 2017-07-30 09:24 | NUR ---
Patient identified as a hospice patient and a readmission within 30 days. 87 year old female admitted by [facility] for symptom management. Patient before I could evaluate her.
== END 2017-07-25 17:05 | disposition expired | DRG 951 ==
LOC: C.4E 19:55
PROVIDERS: ADMIT Hospitalist; ATTEND Hospitalist
DX: Z51.5 Encounter for palliative care (principal); S72.141A Displaced intertrochanteric fracture of right femur, initial encounter for closed fracture; R21 Rash and other nonspecific skin eruption; E11.9 Type 2 diabetes mellitus without complications; I48.0 Paroxysmal atrial fibrillation; F03.90 Unspecified dementia, unspecified severity, without behavioral disturbance, psychotic disturbance, mood disturbance, and anxiety; Z66 Do not resuscitate; W19.XXXA Unspecified fall, initial encounter